=== PATIENT | female | born 1970 | race Caucasian/White ===

== ENCOUNTER → 2019-07-20 07:20 | Outpatient (CLI) | payer BC, SELFPAY ==
--- NOTE | ~2019-07-20 | MM_ITS ---
EXAMINATION: MM screening abby BI w leonel HISTORY: Screening mammogram TECHNIQUE: Craniocaudal and mediolateral oblique 3-D tomosynthesis images were obtained and synthetic 2-D images were generated. CAD analysis was submitted and interpreted. COMPARISON: 06/07/2018 bilateral digital screening mammogram BREAST PARENCHYMAL COMPOSITION: The breasts are extremely dense, which lowers the sensitivity of mamm ography. FINDINGS: There is no evidence of suspicious mass, calcification, or architectural distortion to sugg est malignancy in either breast. There has been no suspicious interval change. IMPRESSION: 1. No mammographic evidence of malignancy. 2. Recommend routine screening mammography in one year. BI-RADS Category 1: Negative Reviewed, dictated and finalized at location A. STONE ERECTOR
== END ==
DX: Z12.31 Encounter for screening mammogram for malignant neoplasm of breast (principal)
CPT/HCPCS: 77063; 77067

== ENCOUNTER 2019-12-17 15:33 | Outpatient (CLI) | payer BC, SELFPAY ==
[2019-12-17 15:47] LABS: Basophils Percent Auto 0.5 % (0.2-1.2); Eosinophils Absolute Auto 0.1 K/mm3 (0-0.3); Eosinophils Percent Auto 1.4 % (0-4.4); Hematocrit 38.4 % (37.0-47.0); Hemoglobin 12.8 g/dL (12.0-15.0); Immature Granulocyte Absolute 0.02 K/mm3 (0.00-0.031); Immature Granulocyte Percent A 0.3 % (0-0.5); Lymphocytes Absolute Auto 3.16 K/mm3 (0.9-3.2); Lymphocytes Percent Auto 39.7 % (18.3-44.2); Mean Corpuscular HGB Conc 33.3 g/dl (32-36); Mean Corpuscular Hemoglobin 31.6 pg (26-34); Mean Corpuscular Volume 94.8 fl (80-100); Monocytes Absolute Auto 0.7 K/mm3 (0.1-0.6); Monocytes Percent Auto 8.5 % (2.6-8.5); Neutrophils Percent Auto 49.6 % (45.5-73.1); Platelet Count Result 238 k/mm3 (150-375); Red Blood Count 4.05 M/mm3 (4.2-5.4); Red Cell Distribution Width 12.4 % (11.5-14.5)
[2019-12-17 17:22] LABS: Iron 76 ug/dL (37-170)
[2019-12-17 17:24] LABS: Blood Urea Nitrogen 15 mg/dL (7-17); Calcium 9.5 mg/dL (8.4-10.2); Carbon Dioxide 25 mmol/L (22-30); Chloride 103 mmol/L (98-107); Estimated Glomerular Filt Rate > 60; Glucose 104 mg/dL (65-105); Potassium 3.9 mmol/L (3.4-5.0); Sodium 136 mmol/L (137-145)
[2019-12-17 17:38] LABS: Percent Iron Saturation 22 % (20-50)
[2019-12-17 18:29] LABS: Folic Acid 16.6 ng/mL (2.76->20); Vitamin B12 > 1000.0 pg/mL (239-931)
== END 2019-12-17 15:34 | disposition home or self-care (01) ==
PROVIDERS: PCP Family Medicine; Visit Provider Internal Medicine Hematology & Oncology
DX: D64.9 Anemia, unspecified (principal)
CPT/HCPCS: 36415; 80048; 82607; 82728; 82746; 83540; 83550; 85025

== ENCOUNTER 2020-06-17 09:22 | Outpatient (CLI) | payer BC, SELFPAY ==
[2020-06-17 09:36] LABS: Basophils Percent Auto 0.6 % (0.2-1.2); Eosinophils Absolute Auto 0.1 K/mm3 (0-0.3); Eosinophils Percent Auto 1.5 % (0-4.4); Hematocrit 39.8 % (37.0-47.0); Hemoglobin 13.2 g/dL (12.0-15.0); Immature Granulocyte Absolute 0.02 K/mm3 (0.00-0.031); Immature Granulocyte Percent A 0.3 % (0-0.5); Lymphocytes Absolute Auto 2.12 K/mm3 (0.9-3.2); Lymphocytes Percent Auto 31.5 % (18.3-44.2); Mean Corpuscular HGB Conc 33.2 g/dl (32-36); Mean Corpuscular Hemoglobin 30.7 pg (26-34); Mean Corpuscular Volume 92.6 fl (80-100); Mean Platelet Volume 8.9 fl (7.4-10.4); Monocytes Absolute Auto 0.6 K/mm3 (0.1-0.6); Monocytes Percent Auto 8.9 % (2.6-8.5); Neutrophils Absolute Auto 3.9 K/mm3 (1.3-6.7); Neutrophils Percent Auto 57.2 % (45.5-73.1); Platelet Count Result 268 k/mm3 (150-375); Red Cell Distribution Width 13.5 % (11.5-14.5); White Blood Count 6.7 K/mm3 (4.5-10.0)
[2020-06-17 12:43] LABS: Iron 133 ug/dL (37-170)
[2020-06-17 12:53] LABS: Percent Iron Saturation 39 % (20-50)
[2020-06-17 14:16] LABS: Folic Acid > 20.0 ng/mL (2.76->20)
== END 2020-06-17 09:23 | disposition home or self-care (01) ==
LOC: ANHLAB 09:24
PROVIDERS: PCP Family Medicine; Visit Provider Internal Medicine Hematology & Oncology
DX: D64.9 Anemia, unspecified (principal)
CPT/HCPCS: 36415; 82607; 82728; 82746; 83540; 83550; 85025

== ENCOUNTER → 2020-12-05 10:34 | Outpatient (CLI) | payer BC, SELFPAY ==
--- NOTE | ~2020-12-05 | XR_ITS ---
EXAMINATION: XR lumbar spine min 4V DATE: 12/05/2020 11:04 INDICATION: Low back pain TECHNIQUE: Anteroposterior, lateral, and bilateral oblique views of the lumbar spine, and cone-down l ateral view of the lumbosacral junction were obtained. COMPARISON: None. FINDINGS: There are 2 mm of retrolisthesis of L5 on S1. The vertebral body heights are normal. There is no fracture. Small degenerative osteophytes project from the anterior endplates of multiple verteb ral bodies. There is mild facet osteoarthritis of the lower lumbar spine. IMPRESSION: 1. Mild lumbar spondylosis without acute findings. Reviewed, dictated and finalized at location B.
== END ==
PROVIDERS: PCP Family Medicine; Visit Provider Chiropractor
DX: M47.896 Other spondylosis, lumbar region (principal)
CPT/HCPCS: 72110

== ENCOUNTER 2021-07-15 07:57 | Outpatient (CLI) | payer BC, SELFPAY ==
--- NOTE | ~2021-07-15 | US_ITS ---
EXAMINATION: US abdomen complete EXAM DATE: 07/15/2021 08:25 INDICATION: R10.9 - Unspecified abdominal pain. TECHNIQUE: Multiple grayscale and Doppler images of the complete abdomen were obtained (by a technolo gist who performed the scan) and subsequently reviewed. There is no prior study for comparison. FINDINGS: The abdominal aorta is normal in caliber. Visualized portion IVC is patent. The pancreatic head a nd body are normal in appearance. The pancreatic tail is not visualized. The liver has normal echogenicity and contour. There are no focal liver lesions identified. There is no evidence of intrahepatic biliary duct dilation. Portal venous flow was seen in the hepatopedal , normal direction and has normal Doppler waveform. Common bile duct measures 5 mm, which is normal. The gallbladder wall is normal in thickness, with ex pected amount of distention. No sonographic evidence of pericholecystic fluid. There is no cholelit hiases. Technologist performing exam reports patient did not demonstrate sonographic Sanchez's sign. Please note that this sign is less reliable in patients who have received pain medication. Right kidney: There is normal contour and echogenicity. It measures 9.2 x 3.7 x 4.1 centimeters. T here are no focal renal lesions identified. There is no hydronephrosis. Left kidney: There is normal contour and echogenicity. It measures 9.8 x 5.0 x 4.7 centimeters. Th ere are no focal renal lesions identified. There is no hydronephrosis. The spleen measures 7 centimeters and is morphologically normal. IMPRESSION: 1. Unremarkable complete abdominal ultrasound exam. Reviewed, dictated and finalized at location B. 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
== END 2021-07-15 07:58 | disposition home or self-care (01) ==
LOC: ANHIMG 07:58
PROVIDERS: PCP Family Medicine; Visit Provider Physician Assistant
DX: R10.9 Unspecified abdominal pain (principal)
CPT/HCPCS: 76700

== ENCOUNTER 2021-12-04 08:44 | Outpatient (CLI) | payer BC, SELFPAY ==
--- NOTE | ~2021-12-04 | MM_ITS ---
EXAMINATION: MM screening abby BI w leonel HISTORY: Screening TECHNIQUE: Craniocaudal and mediolateral oblique 3-D tomosynthesis images were obtained and synthetic 2-D images were generated. CAD analysis was submitted and interpreted. COMPARISON: Comparison to multiple prior studies sequentially, with oldest reviewed study dated 07/2018. BREAST PARENCHYMAL COMPOSITION: The breasts are extremely dense, which lowers the sensitivity of mamm ography FINDINGS: There is no evidence of suspicious mass, calcification, or architectural distortion to sugg est malignancy in either breast. There has been no suspicious interval change. IMPRESSION: 1. No mammographic evidence of malignancy. 2. Recommend routine screening mammography in one year. BI-RADS Category 1: Negative Reviewed, dictated and finalized at location A.
== END 2021-12-04 08:45 | disposition home or self-care (01) ==
LOC: ANHIMG 08:45
PROVIDERS: PCP Family Medicine; Visit Provider Nurse Practitioner Obstetrics & Gynecology
DX: Z12.31 Encounter for screening mammogram for malignant neoplasm of breast (principal)
CPT/HCPCS: 77063; 77067

== ENCOUNTER 2022-06-02 01:28 | Day surgery (SDC) | payer BC, SELFPAY ==
--- NOTE | 2022-05-28 13:00 | PM.HPGS ---
History of Present Illness History of Present Illness Consent: Risks, benefits, and alternatives have been discussed and questions answered. Patient agrees to proceed with procedure. Chief complaint: Epigastric pain Narrative: Petty Pablo is a 52 year old female Who for the past year so has had episodes every few months of ? Abdominal pain.? Pain will last for several days.? She does not usually have vomiting with this she denies fever chills change in bowel habits.? She uses NSAIDs but rarely.? She actually has been maintained on omeprazole for quite a while.? she believes that she start taking omeprazole 4 years ago and cannot honestly remember which symptoms prompted it. She had tried Tums and also tried Carafate somewhere along the line which did not help.? There has been no weight loss. ? She states that she actually has 2 issues.? The 1 described above which has been occurring every now and then for the past year or 2 and then a new 1 that developed this past winter.? With this one, she had discomfort that was little higher in the abdomen, just to the left of the umbilicus.? It lasted about 3 weeks. ? It always felt somewhat better after she would eat.? With that she also noticed that she was having more reflux symptoms as she would feel some burning in her neck at times.? That also has subsided. She had several blood tests that were negative and an ultrasound that also was negative.? She was advised to add Pepcid to her regimen and after doing that she felt much better within a few days.? Review of Systems Review of Systems: All systems reviewed & are unremarkable except as noted in HPI and below PMFSH Surgical History Surgical History H/O removal of cyst Family History Family History Mother Family history of elevated blood lipids Father Acute myocardial infarction Family history of coronary artery disease Social History Social History Smoking status: Never smoker Second hand tobacco smoke exposure: No Alcohol intake: never Substance use: never Substance use type: does not use Living arrangements: with family Gender identity (if verbalized by the patient): Female Sexual Orientation (if Verbalized by the Patient): Straight or Heterosexual Spiritual care concerns: No Meds Home Medications and Allergies Home Medications Medication Instructions Recorded Confirmed Type aspirin 81 mg tablet,delayed 81 mg PO DAILY 06/18/19 06/01/22 History release (Aspir-Low) cetirizine 10 mg capsule (Zyrtec) 10 mg PO DAILY 05/14/20 06/01/22 History albuterol sulfate 90 mcg/actuation 1 puff inhalation Q4H PRN 09/01/20 06/02/22 Rx aerosol inhaler (ProAir HFA) shortness of breath or wheezing #8.5 grams famotidine 20 mg tablet 20 mg PO DAILY 09/01/21 06/01/22 History fluticasone propionate 115 See Rx Instructions .Route 03/22/22 06/01/22 Rx mcg-salmeterol 21 mcg/actuation .COMPLEX #12 grams HFA inhaler (Advair HFA) B6 1.7 mg-folic 400 mcg-B12 2.4 1 cap PO DAILY 06/01/22 06/01/22 History elb-tfsodx-fhfwjdqwbjtl oral capsule (Neuriva Plus FilterEasy) Lactobacillus rhamnosus GG 10 1 cap PO DAILY 06/01/22 06/01/22 History billion cell-inulin 200 mg capsule ([employer]) fluticasone propionate 50 1 spray intranasal BID 06/01/22 06/01/22 History mcg/actuation nasal spray,suspension montelukast 10 mg tablet 10 mg PO QPM 06/01/22 06/01/22 History (Singulair) Allergies Allergy/AdvReac Type Severity Reaction Status Date / Time erythromycin base Allergy Intermediate hives Verified 06/02/22 07:19 Exam Const: General: alert Orientation/consciousness: patient oriented x3 Resp: Auscultation: clear to auscultation bilaterally Cardio: Rhythm: regular rhythm GI: GI Palp: Yes Soft to
[2022-06-01 08:38] VITALS: BMI 23.3
[2022-06-02 07:29] VITALS: BP 140/70; PULSE 80; RESP 20; TEMP 36.4; O2SAT 100
[2022-06-02] MEDS: LACTATED RINGERS 1,000 ML 150 ML IV CONT (07:44)
--- NOTE | 2022-06-02 08:08 | WPDANESEPPF ---
Anes - Initial Pre Proc Eval Procedure: Operation Date: 06/02/22 08:30 Proposed Procedures p Esophagogastroduodenoscopy - Francesco Pearson MD Date/Time: 06/02/22 08:08 Surgeon: Francesco Pearson MD Pre Op Diagnosis: Epigastric pain Patient Data Age: 52 Gender: F Height: 1.57 m Weight: 58 kg Last Vital Signs Temp 97.5 F L 06/02/22 07:29 Pulse 80 06/02/22 07:29 Resp 20 06/02/22 07:29 BP 140/70 06/02/22 07:29 Pulse Ox 100 06/02/22 07:29 O2 Del Method Room Air 06/02/22 07:29 Allergies Allergy/AdvReac Type Severity Reaction Status Date / Time erythromycin base Allergy Intermediate hives Verified 06/02/22 07:19 Home Medications Medication Instructions Recorded Confirmed Type aspirin 81 mg tablet,delayed 81 mg PO DAILY 06/18/19 06/01/22 History release (Aspir-Low) cetirizine 10 mg capsule (Zyrtec) 10 mg PO DAILY 05/14/20 06/01/22 History albuterol sulfate 90 mcg/actuation 1 puff inhalation Q4H PRN 09/01/20 06/02/22 Rx aerosol inhaler (ProAir HFA) shortness of breath or wheezing #8.5 grams famotidine 20 mg tablet 20 mg PO DAILY 09/01/21 06/01/22 History fluticasone propionate 115 See Rx Instructions .Route 03/22/22 06/01/22 Rx mcg-salmeterol 21 mcg/actuation .COMPLEX #12 grams HFA inhaler (Advair HFA) B6 1.7 mg-folic 400 mcg-B12 2.4 1 cap PO DAILY 06/01/22 06/01/22 History nrs-xxmnhy-gnvfofpejnog oral capsule (Neuriva Plus Brain Performance) Lactobacillus rhamnosus GG 10 1 cap PO DAILY 06/01/22 06/01/22 History billion cell-inulin 200 mg capsule ([facility] [employer]) fluticasone propionate 50 1 spray intranasal BID 06/01/22 06/01/22 History mcg/actuation nasal spray,suspension montelukast 10 mg tablet 10 mg PO QPM 06/01/22 06/01/22 History (Singulair) Patient hx anesthesia problems: none Family hx anesthesia problems: none Results Review: All pre-operative results and documents have been reviewed as part of the pre-operative evaluation. [facility] Surgical History Surgical History H/O removal of cyst Family History Family History Mother Family history of elevated blood lipids Father Acute myocardial infarction Family history of coronary artery disease Social History Social History Smoking status: Never smoker Second hand tobacco smoke exposure: No Alcohol intake: never Substance use: never Substance use type: does not use Living arrangements: with family Gender identity (if verbalized by the patient): Female Sexual Orientation (if Verbalized by the Patient): Straight or Heterosexual Spiritual care concerns: No Anes - Eval Final PreProcedure Day of Procedure 06/02/22 08:08 Patient weight: normal Heart: regular rate and rhythm Lungs: clear to auscultation Airway: Mallampati scale class II Neurological: alert and oriented Last oral intake: >/= 8 hours ASA classification: II Emergent: no Anesthetic plan: proceed Anesthesia type and monitoring: general GIVS and standard monitoring Results Review: All pre-operative results and documents have been reviewed as part of the pre-operative evaluation. Informed Consent: The patient's anesthetic plan and its attendant risks and benefits were discussed with the patient/family/POA. Questions were solicited and answers provided to the satisfaction of the patient/family/POA.
[2022-06-02 08:27] VITALS: BP 107/65; PULSE 76; RESP 20; O2SAT 98
[2022-06-02 08:37] VITALS: BP 101/61; PULSE 86; RESP 20; O2SAT 99
[2022-06-02 08:47] VITALS: BP 114/71; PULSE 72; RESP 20; O2SAT 97
== END 2022-06-02 09:05 | disposition home or self-care (01) ==
PROVIDERS: PCP Family Medicine; Visit Provider Internal Medicine Gastroenterology
PROC: 0DJ08ZZ Inspection of Upper Intestinal Tract, Via Natural or Artificial Opening Endoscopic (ICD-10-PCS; CPT 43235; principal; 2022-06-02 08:30)
DX: K21.9 Gastro-esophageal reflux disease without esophagitis (principal); K29.70 Gastritis, unspecified, without bleeding; Z79.82 Long term (current) use of aspirin; Z79.51 Long term (current) use of inhaled steroids
CPT/HCPCS: 43239; 87081; 88305; J2704; J7120

== ENCOUNTER 2022-09-03 11:33 | Outpatient (CLI) | payer BC, SELFPAY ==
[2022-09-03 12:26] LABS: CRP < 0.5 mg/dL (<1.0)
[2022-09-10 22:38] LABS: Calprotectin, Stool 61 mcg/g
== END 2022-09-03 11:34 | disposition home or self-care (01) ==
PROVIDERS: PCP Family Medicine; Visit Provider Internal Medicine Gastroenterology
DX: R10.33 Periumbilical pain (principal)
CPT/HCPCS: 36415; 83993; 86140

== ENCOUNTER 2022-09-28 08:05 | Outpatient (CLI) | payer BC, SELFPAY ==
--- NOTE | ~2022-09-28 | XR_ITS ---
EXAMINATION: XR UGIAC w small bowel DATE: 09/28/2022 10:29 INDICATION: Periumbilical abdominal pain. TECHNIQUE: The patient drank thick barium, gas-producing crystals, and thin barium. Fluoroscopy of th e esophagus, stomach, and small bowel was performed. Fluoroscopy exposure time was 0.7 minutes. Radio graphs of the abdomen were obtained. The total number of images was 276. COMPARISON: CT abdomen and pelvis 12/20/2011 FINDINGS: UPPER GASTROINTESTINAL SERIES: There is no mass or stricture of the esophagus. Esophageal motility is normal. There is no hiatal her kari. There was no gastroesophageal reflux with provocative maneuvers. The stomach shows a normal fold ing pattern. SMALL BOWEL SERIES: The small bowel shows a normal folding pattern. Specifically, the terminal ileum is normal. Transit t dedrick to the colon was 1 hour. IMPRESSION: 1. Normal upper gastrointestinal series. 2. Normal small bowel series. Reviewed, dictated and finalized at location A.
== END 2022-09-28 08:06 | disposition home or self-care (01) ==
PROVIDERS: PCP Family Medicine; Visit Provider Internal Medicine Gastroenterology
DX: D50.9 Iron deficiency anemia, unspecified (principal); R10.33 Periumbilical pain
CPT/HCPCS: 74246; 74248

== ENCOUNTER 2023-05-19 16:10 | Outpatient (CLI) | payer BC, SELFPAY ==
--- NOTE | ~2023-05-19 | XR_ITS ---
EXAMINATION: XR knee RT 3V DATE: 05/19/2023 16:33 INDICATION: Right knee pain. TECHNIQUE: 3 views of right knee were obtained. COMPARISON: None. FINDINGS: Bone alignment is normal. No fracture. Joint spaces are normal. No knee joint effusion. IMPRESSION: 1. Normal right knee. Reviewed, dictated and finalized at location A. SOLUTION ARCHITECT IMPRESSION: 1. Normal right knee.
--- NOTE | ~2023-05-19 | XR_ITS ---
EXAMINATION: XR knee LT 3V DATE: 05/19/2023 16:33 INDICATION: Knee pain. TECHNIQUE: 3 views of left knee were obtained. COMPARISON: None. FINDINGS: Bone alignment is normal. No fracture. Joint spaces are normal. No knee joint effusion. IMPRESSION: 1. Normal left knee. Reviewed, dictated and finalized at location A. 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 Normal left knee.
--- NOTE | ~2023-05-19 | US_ITS ---
EXAMINATION: US venous doppler LE RT DATE: 05/19/2023 16:40 INDICATION: Right lower limb pain TECHNIQUE: Crystal scale images without and with compression and Doppler images of the right lower extre mity veins were obtained. COMPARISON: 09/09/2018 FINDINGS: The right common femoral vein, profunda femoral vein, femoral vein, popliteal vein, peronea l trunk, posterior tibial veins, and greater saphenous vein are patent. IMPRESSION: 1. Patent right lower extremity veins. No evidence of deep venous thrombosis. Reviewed, dictated and finalized at location L. GHT MANAGER
== END 2023-05-19 16:11 | disposition home or self-care (01) ==
PROVIDERS: PCP Family Medicine; Visit Provider Physician Assistant Medical
DX: M79.661 Pain in right lower leg (principal); Z86.718 Personal history of other venous thrombosis and embolism; M25.561 Pain in right knee; M25.562 Pain in left knee
CPT/HCPCS: 73562; 93971

== ENCOUNTER 2023-12-07 12:27 | Outpatient (CLI) | payer BC, SELFPAY ==
--- NOTE | ~2023-12-07 | MM_ITS ---
EXAMINATION: MM screening abby BI w leonel HISTORY: Screening mammogram TECHNIQUE: Craniocaudal and mediolateral oblique 3-D tomosynthesis images were obtained and synthetic 2-D images were generated. CAD analysis was submitted and interpreted. COMPARISON: 12/04/2021, 07/20/2019, 06/07/2018 BREAST PARENCHYMAL COMPOSITION:Dense: The breasts are extremely dense, which lowers the sensitivity o f mammography. FINDINGS: No suspicious mass, calcification, or architectural distortion are identified in either pranav ast to suggest malignancy. There has been no suspicious interval change. IMPRESSION: No mammographic evidence of malignancy. Recommend routine screening mammography in one year. BI-RADS Category 1: Negative Reviewed, dictated and finalized at location .
== END 2023-12-07 12:28 ==
PROVIDERS: PCP Nurse Practitioner Obstetrics & Gynecology; Visit Provider Nurse Practitioner Obstetrics & Gynecology
DX: Z12.31 Encounter for screening mammogram for malignant neoplasm of breast (principal)
CPT/HCPCS: 77063; 77067

== ENCOUNTER 2024-06-28 16:20 | Outpatient (CLI) | payer BC, SELFPAY ==
--- NOTE | ~2024-06-28 | US_ITS ---
EXAMINATION: US venous doppler LE RT DATE: 06/28/2024 16:39 INDICATION: Right lower limb pain. TECHNIQUE: Grayscale ultrasound images without and with compression and Doppler ultrasound images of the right lower extremity veins were obtained. COMPARISON: Ultrasound 05/19/2023 FINDINGS: The visualized portions of right common femoral vein, profunda (deep) femoral vein, femoral vein, pop liteal vein, peroneal veins, posterior tibial veins, and greater saphenous vein outflow are patent. IMPRESSION: 1. No deep venous thrombosis. Reviewed, dictated and finalized at location B. TUNNEL MECHANIC
--- OUTSIDE RECORDS SUMMARY | 2024-06-29 06:09 | XMS_ITS | Data Portability ---
Author Organization [facility] Address [address] [place] [place] [address] Care Team Providers Care Employee Relations Administrator Name Role Phone HERMINIO ZAVALA Primary Care Provider Assessment Encounter Date Assessment Date Assessment LastModified by Organization Details LastModified Time 10/12/2021 10/12/2021 Annual gynecological exam performed. Patient will come back in a year unless there are new symptoms. Not available 10/12/2021 11:48:57 07/15/2023 07/15/2023 Annual gynecological exam performed. Patient will come back in a year unless there are new symptoms. [email or web address] Not available 07/15/2023 12:51:02 Plan of Treatment Reminders Order Date Submit Date Provider Last Modified By Organization Details Last Modified Time Details Appointments None recorded. Lab hormone panel, serum or plasma 2021 022 [facility] (Lab), [address], [place], [address], 03:45:43 TSH, serum or plasma 2021 022 [facility] (Lab), [address], [place], [address], 03:45:43 test, urine 2021 022 [facility], [place], [address], 16:29:04 Referral None recorded. Procedures None recorded. Surgeries None recorded. Imaging US, pelvis 2021 022 [email or web address] [facility], [address], [address], [place], [address], 12:31:53 US, transvagina l 2021 022 [email or web address] [place], [address], [place], [address], 12:31:53 MAMMO, screening, bilateral 2023 024 [email or web address] [facility], [address], [place], [address], 4 15:24:39 Medication Orders None recorded. Patient TargetsNo targets recorded. Patient InstructionsNo instructions recorded. Reason for Referral None Reported. Results Created Date Observation Date Name Description Value Unit Range Abnormal Flag Note LastModifiedBy Organization Detail LastModifiedTime 10/13/19 22 10/12/2021 TSH, REFLE X FREE T4 TSH 1.74 uIU/m L 0.30-5 .33 Not Available [facility] (Lab) [address], [place], [address], 10/13/2021 03:45:43 10/13/19 22 10/12/2021 FSH, LH, ESTRA DIOL estradiol <5.0 pg/mL This assay was perfo rmed using [employer] ratio n reage nts and test kits. Value s obtai toribio with other assay metho ds or kits canno t be used inter contreras eably . Femal e Estra diol Range s: Folli cular phase 12.4- 233 pg/mL Ovula tion phase 41.0- 398 pg/mL Lutea l phase 22.3- 341 pg/mL Postm enopa usal< 5-138 pg/mL Healt hy Pregn ant Women 1st Trime ster1 54-32 43 pg/mL 2nd Trime ster1 561-2 1280 pg/mL 3rd Trime ster8 525-> 53745 pg/mL Not Available [facility] (Lab) [address], [place], [address], 10/13/2021 03:45:43 10/13/19 22 10/12/2021 FSH, LH, ESTRA DIOL FSH 115.0 mIU/m L This assay was perfo rmed using [employer] reage nts and test kits. Value s obtai toribio with other assay metho ds or kits canno t be used inter contreras eably . Femal es Folli cular : 3.5-1 2.5 mIU/m L Ovula tion: 4.7-2 1.5 mIU/m L Lutea l: 1.7-7 .7 mIU/m L Postm enopa use: 25.8- 134.8 mIU/m L Not Available [facility] (Lab) [address], [place], [address], 10/13/2021 03:45:43 10/13/19 22 10/12/2021 FSH, LH, ESTRA DIOL LH 44.7 mIU/m L This assay was perfo rmed using [employer] reage nts and test kits. Value s obtai toribio with other assay metho ds or kits canno t be used inter contreras easalem . Femal es Mid-F ollic ular: 2.4-1 2.6 mIU/m L Mid-C ycle: 14.0- 95.6 mIU/m L Mid-L uteal : 1.0-1 1.4 mIU/m L Postm enopa use: 7.7-5 8.5 mIU/m L Not Available [facility] (Lab) [address], [place], [address], 10/13/2021 03:45:43 10/13/19 22 10/12/2021 IMAGE GUIDE D PAP AND HPV REGAR DLESS image guided Pap, HPV regardless of Pap result SEE RESULT S BELOW CASE REPOR T: Cytol ogy Gynec ologi fili Repor t Case: [id number] Autho pratima sharp Provi ankit: Nichol souza , [employer] Calles cted: 10/12 1430 TOOL DISPATCHER Order ing Locat ion: [place] Patho nica Recehakan luis miguel: 10/13 0120 First Scree n: Ila Davila , CT Rescr een: Luisa kaiser, Linda ed, CT Speci men: Chepe rodriguezg Pap - Image d, Cervi x STATE MENT OF ADEQU ACY: Satis facto ry for evalu ation Trans forma tion zone compo nent canno t be defin itive ly ident ified due to the prese nce of atrop hy or other hormo nal contreras es FINAL DIAGN OSIS: Negat vasyl for Intra epith elial Lesio n or John kahn (NIL) . Atrop hic cell misael vazquez. Lucy zapien shira d by Luisa kaiser, Linda ed, CT on 2021 at 8:03 PM ----- ----- ----- ----- ----- ----- ----- ----- ----- ----- ----- ----- ----- ----- ----- ----- ----- ---- HPV RESUL TS: HPV mRNA E6/E7 : No HPV mRNA Detec argelia NOTE: This high risk HPV mRNA assay detec ts fourt een high- risk HPV types (16, 18, 31, 33, 35, 39, 45, 51, 52, 56, 58, 59, 66, 68) witho ut diffe renti ation . COMME NT: Note: This speci men was revie wed by a Cytot echno logis t and/o r Patho logis t (as indic ated in this repor t) after evalu ation using the Thinp rep Imagi ng Syste m. CLINI FILI INFOR MATIO N: Menst rual Statu s: LMP (if appli cable ): Clini fili Histo ry/Pr eviou s Pap: Type of Neopl tammie (if appli cable ): Signi fican t Clini fili Findi ngs: Other Histo ry: Hormo ryanne (if appli cable ): PAP EDUCA JOSUE L NOTE: The Pap Test is a scree veronika test with an inher ent false negat vasyl rate. Liqui d-bas ed sampl ing may decre ase, but will not elimi keith, false negat vasyl resul ts. A negat vasyl resul t does not precl ude the prese nce and/o r devel opmen t of disea se, since the prese nce of abnor mal cells in the sampl e depen ds on the locat ion of the lesio n and sampl ing techn ique. Paul nued regul ar scree veronika is the best metho d of cance r preve ntion . If repor argelia cytol ogic findi ng do not corre late with physi fili and/o r histo rical findi ngs, furth er inves tigat ion is recom obie d, as clini germán murphy nted. Not Available [facility] (Lab) [address], [place], [address], 10/17/2021 21:05:36 03/25/20 22 03/25/2022 SURGI FILI PATHO LOGY surgical pathology SEE RESULT S BELOW CASE REPOR T: Surgi fili Patho logy Repor t Case: [id number] Autho jeanethpranav lila Provi ankit: Sajan Sanders Colle cted: 03/25 1653 TOOL DISPATCHER Order ing Locat ion: [place] Patho logy Recei luis miguel: 03/26 0402 Patho logis t: Nadir Zepeda MD Speci men: Endom etriu m, EMB FINAL DIAGN OSIS: Endom etriu m, biops y: -Inac tive endom etriu m with malvin al break down. -No evide nce of hyper plasi a or malig criss . Elect carrie zapien shira d by Nadir Zepeda MD on 03/26 at 1:53 PM ----- ----- ----- ----- ----- ----- ----- ----- ----- ----- ----- ----- ----- ----- ----- ----- ----- ---- CLINI FILI INFOR YOLA N: N93.9 MICRO SCOPI C DESCR IPTIO N: A micro scopi c exami natio n was perfo rmed. GROSS DESCR IPTIO N: A. Rishabh brewer m. The speci men is label ed with the patie nt's name, demog raphi cs and EMB . Recei luis miguel in forma giuseppe is a 1.5 x 1.4 x 0.2 [address] of dark red tissu e. The entir e speci men is submi tted in one casse tte. Gross ed by Edith Segovia on Not Available [facility] [address] [place], [address], 03/26/2022 14:56:20 03/25/20 22 03/25/2022 pregn guille test, urine HCG negati ve Not Available [facility] [address], [place], [address], 03/25/2022 16:28:50 07/15/19 24 07/15/2023 IMAGE GUIDE D PAP AND HPV REGAR DLESS image guided Pap, HPV regardless of Pap result SEE RESULT S BELOW CASE REPOR T: Cytol ogy Gynec ologi fili Repor t Case: [id number] Autho pratima sharp Provi ankit: Sajan Sanders Colle cted: 07/15 1315 TOOL DISPATCHER Order ing Locat ion: [place] Patho logy Recei luis miguel: 07/16 0032 First Scree n: DeLuc a, Radha, CT Speci men: Scree veronika Pap - Image d, Cervi x STATE MENT OF ADEQU ACY: Satis facto ry for evalu ation Trans forma tion zone compo nent canno t be defin itive ly ident ified due to the prese nce of atrop hy or other hormo nal contreras es Parti ally obscu ring lubri cant prese nt. FINAL DIAGN OSIS: Negat vasyl for Intra epith elial Lesio jamshid or John kahn (NIL) . Atrop hic maricruz douglas rn. Elect carrie zapien shira d by Radha Poole, CT on 2023 at 12:44 PM ----- ----- ----- ----- ----- ----- ----- ----- ----- ----- ----- ----- ----- ----- ----- ----- ----- ---- HPV RESUL TS: HPV mRNA E6/E7 : No HPV mRNA Detec argelia NOTE: This high risk HPV mRNA assay detec ts fourt een high- risk HPV types (16, 18, 31, 33, 35, 39, 45, 51, 52, 56, 58, 59, 66, 68) witho ut diffe renti ation . COMME NT: This speci men was revie wed by a Cytot echno logis t and/o r Patho logis t (as indic ated in this repor t) after evalu ation using the Thinp rep Imagi ng Syste m. CLINI FILI INFOR MATIO N: Menst rual Statu s: LMP (if appli cable ): Clini fili Histo ry/Pr eviou s Pap: Type of Neopl tammie (if appli cable ): Signi fican t Clini fili Findi ngs: Other Histo ry: Hormo ryanne (if appli cable ): PAP EDUCA JOSUE L NOTE: The Pap Test is a scree veronika test with an inher ent false negat vasyl rate. Liqui d-bas ed sampl ing may decre ase, but will not elimi keith, false negat vasyl resul ts. A negat vasyl resul t does not precl ude the prese nce and/o r devel opmen t of disea se, since the prese nce of abnor mal cells in the sampl e depen ds on the locat ion of the lesio n and sampl ing techn ique. Paul nued regul ar scree veronika is the best metho d of cance r preve ntion . If repor argelia cytol ogic findi ng do not corre late with physi fili and/o r histo rical findi ngs, furth er inves tigat ion is recom obie d, as clini germán warra nted. Not Available [facility] (Lab) [address], [place], [address], 07/20/2023 13:47:11 03/23/20 22 03/23/2022 US, pelvi s No observ ation record ed. [address], [place], [address], 03/23/2022 10:17:42 03/23/20 22 03/23/2022 US, trans vagin al No observ ation record ed. [address], [place], [address], 03/23/2022 10:17:27 03/23/20 22 03/23/2022 US, pelvi s No observ ation record ed. JOSE M [address] [facility], [place], [address], 03/25/2022 17:00:24 12/07/19 24 12/07/2023 MAMMO , scree veronika, bilat eral No observ ation record ed. JOSE M [facility] [address], [place], [address], 12/27/2023 04:07:33 Result Notes None recorded. Procedures Surgical History Date Name Laterality Status Provider Name and Address Organization Details Recorded Time 03/25/20 Endometrial Biopsy completed Tabatha Morse [facility]- [address], [place], [address], [place] [facility] 03/25/2022 13:03:43 10/20/20 22 Endometrial Biopsy completed Sabiha Champion [facility] 07/15/2023 12:44:46 10/13/19 22 Date of Last Pap Smear completed Brooklyn Lomas [facility] 03/25/2022 10:10:47 03/07/20 17 uterine myomectomy completed Tabatha Morse [facility]- [address], [place], [address], [facility] 03/25/2022 10:41:59 Imaging Results Imaging Date Name Status LastModified by Organization Details LastModified Time 03/23/2022 US, pelvis completed [email or web address] [facility] [place] [address], [place], [address], 03/23/2022 10:17:42 03/23/2022 US, transvaginal completed carol [facility] [address], [place], [address], 03/23/2022 10:17:27 03/23/2022 US, pelvis completed JOSE M [address], [place], [address], 03/25/2022 17:00:24 12/07/2023 MAMMO, screening, bilateral active [facility] [address], [place], [address], 12/27/2023 04:07:33 Procedure Notes None recorded. Medical Equipment None Reported. Allergies Allergen ID Allergen Name Allergen Category Reaction Reaction Severity Criticality Documentation Date Start Date Code Code System Note Provider Name and Address Organization Details Recorded Time 90184 erythromy ori medicatio n Not available Not available Not available 10/12/2021 4053 RxNorm Brooklyn Lomas [facility], [facility] 11:50:22 Medications Name Sig Start Date Stop Date Status Note LastModified by Organization Details LastModified Time sucralfate 1 gram tablet TAKE 1 TABLET BY MOUTH EVERY 6 HOURS 10/12 completed Not Available Not Available Not Available prednisone 20 mg tablet TAKE 2 TABLETS BY MOUTH DAILY FOR 5 DAYS 07/15 completed Not Available Not Available Not Available omeprazole 40 mg capsule,del ayed release TAKE 1 CAPSULE BY MOUTH ONCE DAILY active Not Available Not Available No t Available triamcinolo ne acetonide 0.1 % topical ointment APPLY OINTMENT TOPICALLY TO AFFECTED AREA TWICE DAILY NEEDED DO NOT USE FOR LONGER THAN 1-2 WEEKS 07/15 completed Not Available Not Available Not Available hyoscyamine 0.125 mg sublingual tablet DISSOLVE 1 TABLET IN MOUTH THREE TIMES DAILY active Not Available Not Available No t Available montelukast 10 mg tablet TAKE 1 TABLET BY MOUTH IN THE EVENING active Not Available Not Available No t Available epinephrine 0.3 mg/0.3 mL injection, auto-inject or USE DIRECTED INTRAMUSC ULARLY ONCE NEEDED FOR ALLERGIC REACTION active Not Available Not Available No t Available methylpredn isolone 4 mg tablets in a dose pack TAKE BY MOUTH DIRECTED ON INSIDE OF PACKAGE 07/15 completed Not Available Not Available Not Available albuterol sulfate HFA 90 mcg/actuati on aerosol inhaler INHALE 1 PUFF BY MOUTH EVERY 4 HOURS NEEDED FOR SHORTNESS OF BREATH FOR WHEEZING active Not Available Not Available No t Available ipratropium bromide 42 mcg (0.06 %) nasal spray USE 2 SPRAYS IN EACH NOSTRIL FOUR TIMES DAILY active Not Available Not Available No t Available amoxicillin 875 mg-potassiu m clavulanate 125 mg tablet TAKE 1 TABLET BY MOUTH EVERY 12 HOURS 07/15 completed Not Available Not Available Not Available nitrofurant oin monohydrate /macrocryst als 100 mg capsule TAKE 1 CAPSULE BY MOUTH EVERY 12 HOURS FOR 5 DAYS MUST ADMINISTE R WITH FOOD/MEAL 07/15 completed Not Available Not Available Not Available fluticasone propionate 115 mcg-salmete rol 21 mcg/actuati on HFA inhaler INHALE 2 PUFFS BY MOUTH TWICE DAILY active Not Available Not Available No t Available olopatadine 0.6 % nasal spray USE 2 SPRAYS IN EACH NOSTRIL TWICE DAILY 07/15 completed Not Available Not Available Not Available Zyrtec 10 mg capsule Take by oral route. active Not Available Not Available No t Available Mucus Relief ER 600 mg tablet, extended release TAKE 1 TABLET BY MOUTH EVERY 12 HOURS NEEDED FOR CONGESTIO N 03/25 completed Not Available Not Available Not Available ID NOW COVID-19 Test Kit TEST DIRECTED TODAY 03/25 completed Not Available Not Available Not Available Vitals Date Recorded Body height Body mass index (BMI) Body weight Provider Name and Address Organization Details Last Updated DateTime 10/12/2021 154.94 cm 23.4 kg/m2 43477.45 g Brooklyn Lomas [facility] 10/12/2021 11:50:00 Date Recorded Systolic blood pressure Diastolic blood pressure Provider Name and Address Organization Details Last Updated DateTime 10/12/2021 122 mm[Hg] 80 mm[Hg] Tabatha Morse [facility] [address], [place], [address], [facility] 10/12/2021 12:20:11 Date Recorded Body height Provider Name an d Address Organization Details Last Updated DateTime 03/25/2022 154.94 cm Brooklyn Lomas [facility] 03/25/2022 10:09:12 Date Recorded Systolic blood pressure Diastolic blood pressure Provider Name and Address Organization Details Last Updated DateTime 03/25/2022 126 mm[Hg] 80 mm[Hg] Tabatha Morse [facility] [address], [place], [address], [facility] 03/25/2022 10:42:12 Date Recorded Body height Body mass index (BMI) Body weight Systolic blood pressure Diastolic blood pressure Provider Name and Address Organization Details Last Updated DateTime 07/15/2023 154.94 cm 24.2 kg/m2 41236.82 g 150 mm[Hg] 88 mm[Hg] Sabiha Champion [facility] 12:51:28 Social History Question Answer Notes LastModified by Organizat ion Details LastModified Time Tobacco Smoking Status Never Smoker Brooklyn fuller, [facility] 03/25/2022 10:10:03 Do You Have An Advance Directive? No Information n ot available 03/25/2022 What Is Your Level Of Alcohol Consumption? None Information not available 10/12/2021 Are You Blind Or Do You Have Difficulty Seeing? No Information n ot available 10/12/2021 What Is Your Level Of Caffeine Consumption? Moderate Information not available 10/12/2021 How Much Tobacco Do You Chew? None Information not available 03/25/2022 In The 14 Days Before Symptom Onset, Have You Had Close Contact With A Laboratory-confirm ed COVID-19 While That Case Was Ill? No Information n ot available 03/25/2022 In The 14 Days Before Symptom Onset, Have You Had Close Contact With A Person Who Is Under Investigation For COVID-19 While That Person Was Ill? No Information not available 03/25/2022 Have You Been To An Area Known To Be High Risk For COVID-19? No Information not available 03/25/2022 Are You Deaf Or Do You Have Serious Difficulty Hearing? No Information not available 10/12/2021 What Type Of Diet Are You Following? REGULAR Information n ot available 10/12/2021 What Is The Highest Grade Or Level Of School You Have Completed Or The Highest Degree You Have Received? [id number] Information not available 03/25/2022 Are There Any Guns Present In Your Home? Yes Information not available 03/25/2022 Do You Use Protection During Sex? No Information not available 03/25/2022 Do You Use Your Seat Belt Or Car Seat Routinely? Yes Information not available 10/12/2021 Are You Sexually Active? No Information not available 03/25/2022 Do You Have Smoke And Carbon Monoxide Detectors In Your Home? Yes Information not available 10/12/2021 How Much Tobacco Do You Smoke? No Information not available 03/25/2022 Do You Feel Stressed (tense, Restless, Nervous, Or Anxious, Or Unable To Sleep At Night)? [id number] Information not available 10/12/2021 Do You Use Any Illicit Or Recreational Drugs? No Information not available 10/12/2021 Do You Use Sunscreen Routinely? Yes Information not available 10/12/2021 Have You Used IV Drugs? No Information not available 03/25/2022 Sex: Unknown Functional Status Question Answer Note LastModified by Organizat ion Details LastModified Time Do you have difficulty walking or climbing stairs? No Information not available 03/25/2022 Are you able to walk? YESWOREST Information not available 10/12/2021 Are you able to care for yourself? Yes Information not available 03/25/2022 Do you have difficulty dressing or bathing? No Information not available 03/25/2022 What is your exercise level? Moderate Information not available 10/12/2021 Mental Status None recorded. Family History Relationship Description Onset Age of this Age Resolved Age Notes LastModified by Organization Details LastModified Time Father Heart disease Not available 2021 11:52:14 Mother Hypercholest erolemia Not available 2021 11:52:21 Medical History Condition Response Allergies (Food, seasonal, environmental ) Y Acid Reflux (GERD) Y Deep Vein Thrombosis Y Gynecological History Statement/Question Response Abnormal Pap N Date of Last Mammogram Date of LMP Y Was last menstrual period normal N STIs/STDs N HPV Vaccine N Current Control Method Menopause Are cycles usually normal N Date of Last Colonoscopy Sexually Active? N Menses Monthly N Date of Last Pap Smear 10/12/2021 Sexual Problems? N LMP Unknown Obstetrics History GPAL:G 1 P 0 0 0 1 Type Value Living 1 Total 1 Past Encounters Encounter ID Performer Location Encounter Start Date Encounter Closed Date Diagnosis/Indication Diagnosis SNOMED-CT Code Diagnosis ICD10 Code Diagnosis Note [id number] Tabatha Morse [facility] [address] [address] 10/12/2021 11:28:14 10/12/2021 12:45:58 Gynecologic examination 72520801 Z01.419 Take Calcium with Vitamin D 12-1500mg daily. Do monthly self breast exams. It is advised to get annual flu shot in the fall and she could obtain at [facility] or [facility] clinic. If you haven't received the Tdap vaccine in the last 10 years you should obtain one as well. Have mammogram yearly, bone density every 2-3 years and colonoscop y every 5-10 years depending on findings and history. Engage in daily exercise of low impact aerobic exercise 45-60 minutes 4-5 times weekly. Avoid tobacco and illicit drugs as well as using moderation with alcohol intake less than 1-2 8 oz beverages daily. This lifestyle behavior pattern will lead to less health conditions and longer life span. If BMI greater than 25 weight watchers or dietary consult advised. Questions have been answered. Patient appears to understand instructio ns, but if you have any further questions call or respond to this email Pap/hpv sent STD Screen declined Genetic Screen discussed Colon Screen UTD cologuard with PCP Dexa Screen na Routine Labs UTD PCP routine adult labsMammo ordered Irregular periods [id number] N92.6 Likely rigoberto to menopause changes in her menses but we agreed to update ovarian function today.Will have her PCP fax us her recent adult labs done this year as well. Keep menstrual diary [id number] [facility] [address],[place] [address] 03/23/2022 09:21:00 03/23/2022 10:20:09 Irregular periods 68448635 N92.6 D25.9 [id number] [facility] [address],[place] [address] 03/25/2022 09:57:02 03/25/2022 15:20:01 Uterine leiomyoma 66960689 D25.9 D25.0 N93.9 US results reviewedEM Bx completed (See procedure notes). Discussed possible options including MD consult for surgical options, IUD (risk of expulsion/ failure of placement possible), Progestero ne only options, GrnH antagonist s (orlissa), Not a candidate for estrogen so unable to consider Myfembree. We decided to let her consider these & will decide next steps once EMBx results return. Hx of DVTHx of Failed myomectomy Time spent in visit is a total of 26 mins with at least 50% of visit consisting of counseling and review of plan of care not including time spent on procedure. [id number] [facility] [address] [address] 07/15/2023 12:32:39 07/19/2023 08:59:02 Gynecologic examination 15957777 Z01.419 Z11.51 Take Calcium with Vitamin D 12-1500mg daily. Do monthly self breast exams. It is advised to get annual flu shot in the fall and she could obtain at [facility] or [facility] clinic. If you haven't received the Tdap vaccine in the last 10 years you should obtain one as well. Have mammogram yearly, bone density every 2-3 years and colonoscop y every 5-10 years depending on findings and history. Engage in daily exercise of low impact aerobic exercise 45-60 minutes 4-5 times weekly. Avoid tobacco and illicit drugs as well as using moderation with alcohol intake less than 1-2 8 oz beverages daily. This lifestyle behavior pattern will lead to less health conditions and longer life span. If BMI greater than 25 weight watchers or dietary consult advised. Questions have been answered. Patient appears to understand instructio ns, but if you have any further questions call or respond to this email Pap/hpv sentSTD Screen declinedGe netic Screen discussedC olon Screen UTD cologuard with PCPDexa Screen naRoutine Labs UTD PCP routine adult labsMammo ordered Screening mammography 24 [id number] Z12.31 Health Concerns Section Related Observation LastModified by Organization Detai ls LastModified Time None Recorded Concern Status LastModified by Organization Details LastModified Time None Recorded Advance Directives Directive N: Payers Encounter Date Sequence Insurance Name Policy Number Policy Christiansen Covered Member ID Christiansen Member ID Guarantor Name 10/12/2021 1 [employer]: 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 112 Petty Pablo [id number] Petty Pablo 03/23/2022 1 [employer]: 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 112 Petty Pablo [id number] Petty Pablo 03/25/2022 1 [employer]: 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 112 Petty Pablo [id number] Petty Pablo 07/15/2023 1 [employer]: 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 112 Petty Pablo [id number] Petty Pablo Notes Date Note Type Note Provider Name and Address Organization Details Recorded Time 10/12/2021 text/html Annual GYNReport ed bypatient.Menstrua l cycle:Perimenopaus al(Irregular cycle intervals likely transition into menopause but will require a little further assessment to ensure no other issues) Urinary symptoms:No hematuria; No incontinence Vulva:No genital lesion Vagina:Normal vaginal discharge Breast:No breast pain; No breast lump; No nipple discharge Current Contraception:Eagle gamous relationship; Not sexually active Sexual complaints:No sexual complaints; No pain during intercourse; Normal libido Menopausal Symptoms:No menopausal symptoms; Normal vaginal lubrication Psychological symptoms:No depression; No anxiety; No PMDD Preventive measures:Encourage self breast examination; Encourage regular exercise; Encourage no tobacco use; Encourage regular mammograms starting age 40; Followed with Q3 year pap smear and high risk HPV typing; Needs to schedule mammogram; Up to date on colonoscopy screening [facility] [address], [place], [address], [facility] 10/12/2021 12:25:13 03/25/2022 text/html Here today for U S review & EMBx. [place] fuller [facility] 03/25/2022 16:29:18 07/15/2023 text/html Annual Commercial Lines Underwriter Post-MenopausalRep orted bypatient.Menopaus al Symptoms:no menopausal symptoms; normal vaginal lubrication Vaginal Bleeding:history of menopause having occurred; no history of post menopausal bleeding Urinary Symptoms:no hematuria; no incontinence; no nocturia; no urinary frequency Vulva:no genital lesion; no vulvar atrophy Vagina:normal vaginal discharge; no vaginal atrophy Breast:no breast lump; no nipple discharge; no breast pain Sexual Complaints:no sexual complaints Psychological Symptoms:no depression; no anxiety Preventive Measures:encourage regular mammograms starting age 40; encourage self breast examination; encourage regular exercise; encourage no tobacco use; needs to schedule mammogram; history of recent colonoscopy [facility] [address], [place], [address], [facility] 07/18/2023 23:49:46 OBGyn Episode Ob Episode Information Episode Created Date Number of Fetuses Patient Bloodtype Patient rh Status Prepregnancy Weight lbs Domestic Partner Domestic Partner Phone Father Name Clinical Orthoptist Status 10/13/19 22 1 CLOSED Fetus Data First Name Last Name Admitted to NICU Weight (g) Sex Living Outcome Pediatric Complications Fetus ID Race Codes Race Delivery Type M Full Term [id number] Vaginal Delivery Roldan Calculation Initial Roldan Date Initial Exam Date Initial Exam Provider Initial Ultrasound Date Last Menstrual Period Date Ultra Sound Weeks Gestation 0 Eighteen To Twenty Week Roldan Update Ultra Sound Date Fundal Height At Umbil Quickening Date Ultra Sound Latest Weeks Gestation Final Roldan Confirmed By Final Roldan Confirmed Date Final Roldan Date Ultra Sound Latest Days Gestation 0 0 Menstrual History Last Menstrual Date Menses Monthly On Bcp Conception Prior Menses Frequency Hcg Plus Date Menarche Onset Age Delivery Information Delivery Date Delivery Type Labor Anesthesia Weeks Gestation Incision Type Labor Labor Length Hrs Delivered By Post Complications Tubal Sterilization Discharge Date Comments 6 Discharge Information Feeding Method Contraceptive Method Maternal HG B and HCT Levels
== END 2024-06-28 16:21 | disposition home or self-care (01) ==
PROVIDERS: PCP Family Medicine; Visit Provider Family Medicine
DX: M79.604 Pain in right leg (principal); M79.661 Pain in right lower leg; Z86.718 Personal history of other venous thrombosis and embolism
CPT/HCPCS: 93971

== ENCOUNTER 2024-12-28 08:52 | Outpatient (CLI) | payer BC, SELFPAY ==
--- OUTSIDE RECORDS SUMMARY | 2024-12-28 08:56 | XMS_ITS | Clinical Summary ---
Author Organization [facility] Address [address] [place] [address] Care Team Providers Care Night Filler Name Role Phone Armond Koehler MD Primary Care Provider Allergies Active Allergy Reactions Criticality Noted Date Comments Erythromycin Hives High 02/01/2019 Medications Advair HFA 115-21 mcg/actuation inhaler INL 2 PFS PO BID 0 Active montelukast (SINGULAIR) 10 mg tablet TK 1 T PO D 0 Active omeprazole (PriLOSEC) 40 mg capsule TK 1 C PO D 0 Active ferrous sulfate (IRON ORAL) Take by mouth Acti ve cetirizine HCl (ZYRTEC ORAL) Take by mouth Ac tive aspirin 81 mg enteric coated tablet Take 81 mg by mouth daily Active fluticasone propionate (FLONASE) 50 mcg/actuation nasal spray Administer 1 spray into each nostril daily Active Bepreve 1.5 % drops INSTILL 1 GTT IN OU BID 0 Active albuterol HFA (PROVENTIL HFA,VENTOLIN HFA,PROAIR HFA) 90 mcg/actuation inhaler INHALE 1 PUFF BY MOUTH EVERY 4 HOURS NEEDED FOR SHORTNESS OF BREATH OR WHEEZING 1 Active Active Problems Problem Noted Date Diagnosed Date Paresthesia 06/12/2020 Assessment & Plan (10/21/2020 9:33 AM CDT): Patient describes that her migratory paresthesias have spontaneously lessened. Her neurological examination remains normal at this time. Observation from the neurological standpoint would be appropriate. Assessment & Plan (06/12/2020 4:57 PM CHILD CARE LEAD TEACHER): Patient describes a several year history of migratory paresthesia. Prior MRI imaging of the brain demonstrates multiple T2 weighted changes suspicious for primary demyelination. MRI cervical spine is unrevealing with regards to the spinal cord signal. Given her continued symptoms an abnormality seen on MRI I think that is highly likely that she does have primary demyelination (multiple sclerosis). I will order a spinal fluid examination for further investigation into potential multiple sclerosis. I will see her back in the office upon completion of study. White matter abnormality on MRI of brain 021 Assessment & Plan (10/21/2020 9:35 AM CDT): Patient has undergone CSF examination with no evidence of primary demyelination, infectious or inflammatory abnormality at this time. The MRI findings may well represent chronic ischemic changes. Primary demyelination is felt to be clinically less likely in the setting of normal CSF examination. I have suggested that patient could have her PCP repeat the MRI brain with and without contrast in 1 year or sooner if symptoms increase in severity or location and if there is evidence of increase in T2 changes are abnormal contrast enhancement, then a follow-up CSF examination could be considered. Otherwise observation from the neurological standpoint would be most appropriate. I will see her back in the office on an as-needed basis from the medical neurological standpoint. Assessment & Plan (06/12/2020 4:57 PM CHILD CARE LEAD TEACHER): MRI brain with and without contrast reports multiple T2 weighted changes suspicious for primary demyelination. A CSF examination will be ordered for further investigation. Surgical History Surgery Date Site/Laterality Comments ORAL SURGERY FL FLUORO GUIDED LUMBAR PUNCTURE 06/20/2020 Right Medical History Medical History Date Comments No pertinent past medical history Family History Medical History Relation Name Comments No Known Problems Brother 1 No Known Problems Brother 2 Heart attack Father Dementia Mother Relation Name Status Comments Brother 1 Alive Brother 2 Alive Father Mother Social History Tobacco Use Types Packs/Day Years Used Date Smoking Tobacco: Never Smokeless Tobacco: Never Personal Safety Answer Date Recorded Getting School Help Needed Not on file 08/20 Comments Unknown Sex and Gender Information Value Date Recorded Sex Assigned at Not on file Legal Sex Female 6:22 PM CHILD CARE LEAD TEACHER Gender Identity Not on file Sexual Orientation Not on file Obstetrics History Last Filed Vital Signs Vital Sign Reading Time Taken Comments Blood Pressure 138/70 10/21/2020 8:41 AM CDT Pulse 70 10/21/2020 8:41 AM CDT Temperature 36.6 C (97.8 F) 10/21/2020 8:41 AM CDT Respiratory Rate - - Oxygen Saturation 99% 09/02/2020 8:18 AM CDT Inhaled Oxygen Concentration - - Weight 57.2 kg (126 lb) 10/21/2020 8:41 AM CDT Height 157.5 cm (5' 2) 10/21/2020 8:41 AM CDT Body Mass Index 23.05 10/21/2020 8:41 AM CDT Plan of Treatment Not on file Insurance [place] [facility] [place] Care Teams Night Filler Relationship Specialty Start Date End Date Armond Koehler MD [address] [facility] [address] [place], [place] [id number] PCP - General 03/28/20
--- OUTSIDE RECORDS SUMMARY | 2024-12-28 08:56 | XMS_ITS | Clinical Summary ---
Author Organization [facility] Address [address] [place] [address] Phone Care Team Providers Care Machine Loader Name Role Phone Armond Koehler MD Primary Care Provider [phone] Allergies Active Allergy Reactions Criticality Noted Date Comments Erythromycin Hives High 02/01/2019 Medications ADVAIR HFA 115-21 mcg/actuation HFA Aerosol Inhaler INHALE 2 PUFFS PO BID IN THE MORNING AND EVENING UTD 5 9 Active montelukast (SINGULAIR) 10 mg tablet TK 1 T PO QD IN THE LOGAN 5 9 Active omeprazole (PriLOSEC) 40 mg Capsule, Delayed Release(E.C.) TK 1 C PO QD AC 3 9 Active cyanocobalamin (VITAMIN B-12) 100 mcg tablet Take 1,000 mcg by mouth daily. Active aspirin (ECOTRIN EC) 81 mg Tablet, Delayed Release (E.C.) Take 81 mg by mouth daily. Active Bepotastine Besilate (Bepreve) 1.5 % Drops INSTILL 1 GTT IN OU BID 0 Active ferrous sulfate 324 mg (65 mg iron) Tablet, Delayed Release (E.C.) Take by mouth. Activ e cetirizine (ZyrTEC) 10 mg tablet 0 Active fluticasone propionate (FLONASE) 50 mcg/spray Bartelso, Suspension nasal inhaler Administer 1 Bartelso in each nostril. Active Active Problems Problem Noted Date Diagnosed Date Iron deficiency anemia 02/01/2019 Acute deep vein thrombosis ( DVT) of distal end of right lower extremity 02/01/2019 Family History Medical History Relation Name Comments Heart Attack Father Liver Cancer Maternal Grandfather No Known Problems Maternal Grandmother Dementia Mother High Cholesterol Mother No Known Problems Paternal Grandfather No Known Problems Paternal Grandmother Breast Cancer Neg Hx Relation Name Status Comments Father Maternal Grandfather Maternal Grandmother Mother Alive Paternal Grandfather Paternal Grandmother Social History Tobacco Use Types Packs/Day Years Used Date Smoking Tobacco: Never Smokeless Tobacco: Never Alcohol Use Standard Drinks/Week Comments Never 0 (1 standard drink = 0.6 oz pur e alcohol) Comments No Sex and Gender Information Value Date Recorded Sex Assigned at Not on file Legal Sex Female 5:26 AM SUPERVISOR ASBESTOS REMOVAL Gender Identity Not on file Sexual Orientation Not on file Occupation Industry Job Start Date Job End Date Not on file Not on file Not on file Not on file Last Filed Vital Signs Vital Sign Reading Time Taken Comments Blood Pressure 142/87 06/19/2020 3:30 PM SUPERVISOR ASBESTOS REMOVAL Pulse 100 06/19/2020 3:30 PM SUPERVISOR ASBESTOS REMOVAL Temperature 36.8 C (98.3 F) 06/19/2020 3:30 PM SUPERVISOR ASBESTOS REMOVAL Respiratory Rate - - Oxygen Saturation 98% 06/19/2020 3:30 PM SUPERVISOR ASBESTOS REMOVAL Inhaled Oxygen Concentration - - Weight 56.6 kg (124 lb 12.8 oz) 06/19/2020 3:30 PM SUPERVISOR ASBESTOS REMOVAL Height 155.6 cm (5' 1.25) 06/19/2020 3:30 PM CS T Body Mass Index 23.39 06/19/2020 3:30 PM SUPERVISOR ASBESTOS REMOVAL Plan of Treatment Health Maintenance Due Date Last Done Comments DTAP/TDAP/TD VACCINES (1 - Tdap) 1989 HEPATITIS B VACCINES (1 of 3 - 19+ 3-dose series) 1989 COLORECTAL SCREENING 2015 Colorectal Cancer Screening 2015 FIT-DNA Q 3 years 2015 FIT/FOBT Q 1 year 2015 Flex Sig/CT Colonography Q 5 years 2015 ZOSTER VACCINE (1 of 2) 2020 BREAST CANCER SCREENING 07/20/2020 07/20/19 20, 07/13/2016, 02/06/2015, Additional history exists PAP SMEAR 12/23/2022 12/24/2019, 07/21/2010 CERVICAL CANCER SCREENING 12/23/2024 HPV/Cotest (21-29) 12/23/2024 12/24/2019, 07/21/2010 HPV/Cotest (30-65) 12/23/2024 12/24/2019, 07/21/2010 INFLUENZA VACCINE (#1) 2025 Procedures Procedure Name Priority Date/Time Associated Diagnosis Comments CERV/VAG CYTO AGE BASED SCREEN PAP Routine 12/24/2019 1:47 PM CDT Well female exam with routine gynecological exam MAMMO SCREEN BILAT W OR WO CAD Routine 07/20/2019 from Last 3 Months or Most Recently Relevant to Health Maintenance Results * (ABNORMAL) CERV/VAG CYTO AGE BASED SCREEN PAP (12/24/2019 1:47 PM CDT) COMMENT (PAP): SEE COMMENT 0 8:14 AM CDT [facility] Comment: This order for age-based cervical cancer and STI screening follows ACOG guidelines(PB 168, 140, PHG112). See individual assays for performing site location. CLINICAL INFORMATION Information not provided 12/31/2019 8:14 AM CDT [facility] LAST MENSTRUAL PERIOD Information not provided 12/31/2019 8:14 AM CDT [facility] PREV PAP: Information not provided 12/31/2019 8:14 AM CDT [facility] PREV BX: Information not provided 12/31/2019 8:14 AM CDT [facility] SOURCE Endocervix 12/31/2019 8:14 AM CDT [facility] ADEQUACY: SEE COMMENT 12/31/2019 8:14 AM CDT [facility] Comment: Satisfactory for evaluation. Endocervical/transformation zone component present. Age and/or menstrual status not provided GENERAL CATEGORIZATION: EPITHELIAL CELL ABNORMALITY(A) 12/31/2019 8:14 AM CDT [facility] PAP INTERP Atypical Squamous Cells of Undetermined Significance (ASC-US)(A) 12/31/2019 8:14 AM CDT [facility] COMMENT SEE COMMENT 12/31/2019 8:14 AM CDT [facility] Comment: This Pap test has been evaluated with computer assisted technology. Suggest clinical correlation and follow-up as clinically appropriate RACK PULLER: SEE COMMENT 2019 8:14 AM CDT [facility] Comment: MEF, CT(ASCP) CT screening location: [place] [address] [address] [place] [address] PATHOLOGIST SEE COMMENT 12/31/2019 8:14 AM CDT [facility] Comment: Natan Ortiz M.D., Board Certified in Anatomic Pathology and Cytopathology. (electronic signature) EXPLANATORY NOTE SEE COMMENT 020 8:14 AM CDT [facility] Comment: EXPLANATORY NOTE: The Pap is a screening test for cervical cancer. It is not a diagnostic test and is subject to false negative and false positive results. It is most reliable when a satisfactory sample, regularly obtained, is submitted with relevant clinical findings and history, and when the Pap result is evaluated along with historic and current clinical information. HPV E6/E7 Not Detected Not Detected 12/31/2019 8:14 AM CDT [facility] Comment: This test was performed using the APTIMA HPV Assay ([employer] This assay detects E6/E7 viral messenger RNA (mRNA) from 14 high-risk HPV types (16,18,31,33,35,39,45,51,52,56,58,59,66,68). The analytical performance characteristics of this assay have been determined by [facility]. The modifications have not been cleared or approved by the FDA. This assay has been validated pursuant to the CLIA regulations and is used for clinical purposes. Genital SWAB OF ENDOCERVIX / Unknown Collection / Unknown 12/24/2019 1:47 PM CDT 12/24/2019 7:11 PM CDT Narrative [facility] - 12/31/2019 8:14 AM CDT Performing Organization Information: Site ID: [place] [facility] Address: [address] [place] [address] Director: Luis Carlos Clark D.O., MPH Site ID: [place] [facility] Address: [address] [address] Director: Lisa Stephen us Shanae Villeda MD PATHOLOGY/CYTOLOGY ORDERAB LES Final Result [facility] [phone] * MAMMO SCREEN BILAT W OR WO CAD (07/20/2019) Anatomical Region Laterality Modality Breast Bilateral Mammography us Shanae Villeda MD MAMMO ORDERABLES Edited Re sult - Final from Last 3 Months or Most Recently Relevant to Health Maintenance Insurance [facility] FEDERAL Care Teams Machine Loader Relationship Specialty Start Date End Date Armond Koehler MD PCP - General Family Practice 08/18/11
--- OUTSIDE RECORDS SUMMARY | 2024-12-28 08:56 | XMS_ITS | Encounter Summary ---
Author Organization [facility] Address [address] [place] [address] Care Team Providers Care Housing Quality Standard Inspector Name Role Phone Armond Koehler MD Primary Care Provider [phone] Encounter Details Date Type Department Care Team (Latest Contact Info) Description 09/01/2005 Outpatient Historical [facility] Alverto Gaming MD NO ADDRESS ON FILE Elderly Multigravida with Antepartum Condition or Complication (Primary Dx) Social History Tobacco Use Types Packs/Day Years Used Date Smoking Tobacco: Never Assessed Comments Unknown Sex and Gender Information Value Date Recorded Sex Assigned at Not on file Legal Sex Female 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
--- OUTSIDE RECORDS SUMMARY | 2024-12-28 08:56 | XMS_ITS | Encounter Summary ---
Author Organization [facility] Address [address] [place] [address] Care Team Providers Care Caretaker Resort Name Role Phone Armond Koehler MD Primary Care Provider Encounter Details Date Type Department Care Team (Late st Contact Info) Description 10/06/2005 Outpatient Historical [facility] Maternal and Ground Floor S [facility] [address] [place] [address] Luis Carlos Robertson MD NO ADDRESS ON FILE Social History Tobacco Use Types Packs/Day Years Used Date Smoking Tobacco: Never Assessed Comments Unknown Sex and Gender Information Value Date Recorded Sex Assigned at Not on file Legal Sex Female 5:26 AM BIOINFORMATICIST Gender Identity Not on file Sexual Orientation Not on file documented as of this encounter Plan of Treatment Not on file documented as of this encounter Visit Diagnoses Not on filedocumented in this encounter Care Teams Caretaker Resort Relationship Specialty Start Date End Date Armond Koehler MD PCP - General Family Practice 08/18/11 documented as of this encounter
--- OUTSIDE RECORDS SUMMARY | 2024-12-28 08:56 | XMS_ITS | Encounter Summary ---
Author Organization [facility] Address [address] [place] [address] Care Team Providers Care Conservation Science Officer Name Role Phone Armond Koehler MD Primary Care Provider [phone] Encounter Details Date Type Department Care Team (Latest Contact Info) Description 02/27/2006 Inpatient Historical [facility] Obinna Shaikh MD [address] [place] [address] Alverto Gaming MD NO ADDRESS ON FILE Cord Around Neck-Deliver (Primary Dx) Social History Tobacco Use Types Packs/Day Years Used Date Smoking Tobacco: Never Assessed Comments Unknown Sex and Gender Information Value Date Recorded Sex Assigned at Not on file Legal Sex Female 5:26 AM STAKE DRIVER Gender Identity Not on file Sexual Orientation Not on file documented as of this encounter Plan of Treatment Not on file documented as of this encounter Visit Diagnoses Diagnosis Cord around neck, with compression, complicating labor and delivery, delivered- Primary documented in this encounter Care Teams Conservation Science Officer Relationship Specialty Start Date End Date Armond Koehler MD PCP - General Family Practice 08/18/11 documented as of this encounter
--- OUTSIDE RECORDS SUMMARY | 2024-12-28 08:56 | XMS_ITS | Referral Summary ---
Author Organization [facility] Address [address] [place] [address] Care Team Providers Care Senior Network Administrator Name Role Phone Armond Koehler MD Primary [...] appropriate. Assessment & Plan (06/12/2020 4:57 PM MASTER IN CHANCERY): Patient describes a several year history of [...] standpoint. Assessment & Plan (06/12/2020 4:57 PM MASTER IN CHANCERY): MRI brain with and without contrast reports multiple T2 weighted changes suspicious for primary demyelination. A CSF examination will be ordered for further investigation. Social History Tobacco Use Types Packs/Day Years Used Date Smoking Tobacco: Never Smokeless Tobacco: Never Personal Safety Answer Date Recorded Getting School Help Needed Not on file 08/20 Comments Unknown Sex and Gender Information Value Date Recorded Sex Assigned at Not on file Legal Sex Female 6:22 PM MASTER IN CHANCERY Gender Identity Not on file Sexual Orientation Not on file Last Filed Vital Signs [...] Plan of Treatment Not on file Insurance [employer] [place] [employer] [place] Care Teams Senior Network Administrator Relationship Specialty Start Date End Date Armond Koehler MD [address] [facility] [address] [place] [address] PCP - General 03/28/20
--- OUTSIDE RECORDS SUMMARY | 2024-12-28 08:56 | XMS_ITS | Encounter Summary ---
Author Organization [facility] Address [address] [place] [address] Care Team Providers Care Dairy Farm Operator Name Role Phone Armond Koehler MD Primary Care Provider [phone] Encounter Details Date Type Department Care Team (Late st Contact Info) Description 09/01/2005 Outpatient Historical [facility] Maternal and Ground Floor [address] [facility] [address] [place] [phone] Brandon Salazar MD [address] [place] [address] Social History Tobacco Use Types Packs/Day Years Used Date Smoking Tobacco: Never Assessed Comments Unknown Sex and Gender Information Value Date Recorded Sex Assigned at Not on file Legal Sex Female 5:26 AM WELDING MACHINE OPERATOR HELPER ARC Gender Identity Not on file Sexual Orientation Not on file documented as of this encounter Plan of Treatment Not on file documented as of this encounter Visit Diagnoses Not on filedocumented in this encounter Care Teams Dairy Farm Operator Relationship Specialty Start Date End Date Armond Koehler MD PCP - General Family Practice 08/18/11 documented as of this encounter
--- OUTSIDE RECORDS SUMMARY | 2024-12-28 08:56 | XMS_ITS | Encounter Summary ---
Author Organization [facility] Address [address] [place] [address] Care Team Providers Care Open Hearth Furnace Operator Helper Name Role Phone Armond Koehler MD Primary Care Provider [phone] Encounter Details Date Type Department Care Team (Latest Contact Info) Description 10/06/2005 Outpatient Historical [facility] Alverto Gaming MD NO ADDRESS ON FILE Elderly Primigravida, Antepartum (Primary Dx) Social History Tobacco Use Types Packs/Day Years Used Date Smoking Tobacco: Never Assessed Comments Unknown Sex and Gender Information Value Date Recorded Sex Assigned at Not on file Legal Sex Female 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
--- OUTSIDE RECORDS SUMMARY | 2024-12-28 08:56 | XMS_ITS | Patient Health Record ---
Author Organization [facility] [employer] [place] ([address]) Address [address] [place] [address] Care Team Providers Care Shoder Filler Name Role Phone Armond Koehler MD Primary Care Provider Unavaila Jr Perez Unavailable [phone] Julio Man Unavailable [phone] Allergies Allergen (clinical drug ingredient) Drug/Non Drug Allergy documented on EMR Reaction Allergy Type Onset Date Status erythromycin Erythromycin hives Drug Allergy A ctive Reason For Referral No Information Medications Medication SIG (Take, Route, Frequency, Duration) Notes Start Date End Date Status NASAL WASHES N/A as directed intranasally as needed; Duration: 30 Active Azelastine HCl 137 MCG/SPRAY 2 spray(s) intranasally 2 times a day as needed; Duration: 30 day(s) Active ADVAIR HFA CFC free 115 mcg-21 mcg/inh 2 puff(s) inhaled 2 times a day Active Cetirizine HCl 10 MG 1 tab(s) orally once a day Active Singulair 10 MG 1 tab(s) orally once a day Active Ipratropium [place] 0.06 % 2 spray(s) intranasally 4 times a day; Duration: 30 days Not-Taking Flonase Allergy Relief 50 MCG/ACT 2 spray(s) intranasally bid; Duration: 30 day(s) Active EpiPen 2-Placido 0.3 mg as directed intramuscularly once; Duration: 30 days Active Famotidine 40 mg 1 tab(s) orally 30 mins prior to SCIT; Duration: 30 days 11/29/2022 Active EPIPEN 2-PLACIDO 0.3 mg as directed intramuscularly once; Duration: 30 days Active FAMOTIDINE 40 mg 1 tab(s) orally 30 mins prior to SCIT; Duration: 30 days 11/29/2022 Active ALBUTEROL (EQV-PROAIR HFA) 90 mcg/inh 2 puff(s) inhaled every 6 hours Active AZELASTINE HYDROCHLORIDE NASAL 137 mcg/inh 2 spray(s) intranasally 2 times a day as needed; Duration: 30 day(s) Active OLOPATADINE NASAL 665 MCG/INH 2 SPRAY(S) INTRANASALLY 2 TIMES A DAY; Duration: 30 DAY(S) *Please review for potential replacement for e-prescription and drug interaction check* Active OLOPATADINE NASAL 665 MCG/INH 2 SPRAY(S) INTRANASALLY 2 TIMES A DAY; Duration: 30 DAY(S) *Please review for potential replacement for e-prescription and drug interaction check* Active Advair HFA 115-21 MCG/ACT 2 puff(s) inhaled 2 times a day Active OLOPATADINE NASAL 665 MCG/INH 2 SPRAY(S) INTRANASALLY 2 TIMES A DAY; Duration: 30 DAY(S) *Please review for potential replacement for e-prescription and drug interaction check* Active EPIPEN 2-PLACIDO 0.3 mg as directed intramuscularly once; Duration: 30 days Active FAMOTIDINE 40 mg 1 tab(s) orally 30 mins prior to SCIT; Duration: 30 days 11/29/2022 Active SINGULAIR 10 mg 1 tab(s) orally once a day Active FLONASE 50 mcg/inh 1 spray(s) intranasally bid Active SIT (TRADITIONAL) variable per schedule per schedule; Duration: 999 days Active CETIRIZINE HYDROCHLORIDE 10 mg 1 tab(s) orally once a day Active OLOPATADINE NASAL 665 MCG/INH 2 SPRAY(S) INTRANASALLY 2 TIMES A DAY; Duration: 30 DAY(S) *Please review for potential replacement for e-prescription and drug interaction check* Active IPRATROPIUM NASAL 42 mcg/inh 2 spray(s) intranasally 4 times a day; Duration: 30 days Active Immunizations Vaccine Route Administration Date Status Comme nts NOC Flucelevax Quadrivalent IM Intramuscular 03/13/2020 Administered Social History Tobacco Use: Social History Observation Description Date Details (start date - stop date) Never Smoker NA - NA Smoking Smart Form: Question Answer Notes Are you a: never smoker Tobacco Control (Standard) Question Answer Notes Tobacco use: Nonsmoker Problems Problem Type SNOMED Code ICD Code Onset Dates Problem Status W/U Status Risk Notes Problem Chronic allergic conjunctivitis (87309917) Other chronic allergic conjunctivitis (H10.45) Active confirmed Problem Allergic rhinitis caused by pollen (disorder) (87508473) Allergic rhinitis due to pollen (J30.1) Active confirmed Problem Allergic rhinitis caused by animal hair and dander (201473598342626) Allergic rhinitis due to animal (cat) (dog) hair and dander (J30.81) Active confirmed Problem Allergic rhinitis (48465325) Other allergic rhinitis (J30.89) Active confirmed Problem Allergic rhinitis caused by pollen (disorder) (36839156) Allergic rhinitis due to pollen (J30.1) Active confirmed Problem Allergic rhinitis caused by animal hair and dander (521613090724395) Allergic rhinitis due to animal (cat) (dog) hair and dander (J30.81) Active confirmed Problem Allergic rhinitis (24732113) Other allergic rhinitis (J30.89) Active confirmed Problem Chronic allergic conjunctivitis (32065142) Other chronic allergic conjunctivitis (H10.45) Active confirmed Problem Chronic cough (99449232) Chronic cough (R05.3) Active confirmed Vital Signs Blood pressure diastolic 80 mm Hg 02/13/2024 Oximetry 99 % 02/13/2024 Height 62 in 02/13/2024 Blood pressure systolic 155 mm Hg 02/13/2024 Weight 131.8 lbs 02/13/2024 BMI 24.1 kg/m2 02/13/2024 Encounters Encounter Location Date Provider Diagnosis [facility] [address] [phone] 01/16/2024 Julio Man Allergic rhinitis du e to pollen J30.1 ; Other allergic rhinitis J30.89 ; Allergic rhinitis due to animal (cat) (dog) hair and dander J30.81 and Other chronic allergic conjunctivitis H10.45 [facility] [address] [address] 02/13/2024 Jr Bynum Allergic rhinitis du e to pollen J30.1 ; Other allergic rhinitis J30.89 ; Other chronic allergic conjunctivitis H10.45 ; Chronic cough R05.3 ; Dyspnea, unspecified R06.00 and Elevated blood-pressure reading, without diagnosis of hypertension R03.0 [facility] [address] [place] [phone] 02/20/2024 Julio Man Allergic rhinitis du e to pollen J30.1 ; Other allergic rhinitis J30.89 ; Allergic rhinitis due to animal (cat) (dog) hair and dander J30.81 and Other chronic allergic conjunctivitis H10.45 [facility] [address] [place] [phone] 02/27/2024 Julio Man Allergic rhinitis du e to pollen J30.1 ; Other allergic rhinitis J30.89 ; Allergic rhinitis due to animal (cat) (dog) hair and dander J30.81 and Other chronic allergic conjunctivitis H10.45 [facility] [address] [place] [phone] 03/26/2024 Julio Donovan Allergic rhinitis du e to pollen J30.1 ; Other allergic rhinitis J30.89 ; Allergic rhinitis due to animal (cat) (dog) hair and dander J30.81 and Other chronic allergic conjunctivitis H10.45 [facility] [address] [place] [phone] 04/23/2024 Julio Donovan Allergic rhinitis du e to pollen J30.1 ; Other allergic rhinitis J30.89 ; Allergic rhinitis due to animal (cat) (dog) hair and dander J30.81 and Other chronic allergic conjunctivitis H10.45 [facility] [address] [place] [phone] 05/28/2024 Julio Donovan Allergic rhinitis du e to pollen J30.1 ; Other allergic rhinitis J30.89 ; Allergic rhinitis due to animal (cat) (dog) hair and dander J30.81 and Other chronic allergic conjunctivitis H10.45 [facility] [address] [place] [phone] 06/27/2024 Juliotania Man Allergic rhinitis du e to pollen J30.1 ; Other allergic rhinitis J30.89 ; Allergic rhinitis due to animal (cat) (dog) hair and dander J30.81 and Other chronic allergic conjunctivitis H10.45 [facility] [address] [place] [phone] 07/24/2024 Julio Man Allergic rhinitis du e to pollen J30.1 ; Other allergic rhinitis J30.89 ; Allergic rhinitis due to animal (cat) (dog) hair and dander J30.81 and Other chronic allergic conjunctivitis H10.45 [facility] [address] [place] [phone] 08/20/2024 Julio Man Allergic rhinitis du e to pollen J30.1 ; Other allergic rhinitis J30.89 ; Allergic rhinitis due to animal (cat) (dog) hair and dander J30.81 and Other chronic allergic conjunctivitis H10.45 [facility] [address] [place] [phone] 09/17/2024 Julio Man Allergic rhinitis du e to pollen J30.1 ; Other allergic rhinitis J30.89 ; Allergic rhinitis due to animal (cat) (dog) hair and dander J30.81 and Other chronic allergic conjunctivitis H10.45 [facility] [address] [place] [phone] 10/16/2024 Julio Man Allergic rhinitis du e to pollen J30.1 ; Other allergic rhinitis J30.89 ; Allergic rhinitis due to animal (cat) (dog) hair and dander J30.81 and Other chronic allergic conjunctivitis H10.[address] [phone] 11/12/2024 Julio Man Allergic rhinitis du e to pollen J30.1 ; Other allergic rhinitis J30.89 ; Allergic rhinitis due to animal (cat) (dog) hair and dander J30.81 and Other chronic allergic conjunctivitis H10.45 [facility] [address] [place] [phone] 12/10/2024 Julio Man Allergic rhinitis du e to pollen J30.1 ; Other allergic rhinitis J30.89 ; Allergic rhinitis due to animal (cat) (dog) hair and dander J30.81 and Other chronic allergic conjunctivitis H10.[address] [phone] 01/16/2024 Jr Bynum Allergic rhinitis du e to pollen J30.1 [facility] [address] [facility] [address] [place] [address] 01/23/2024 Jr Bynum Allergic rhinitis du e to pollen J30.1 Assessments Encounter Date Diagnosis (ICD Code) Assessment Notes Treatment Notes Treatment Clinical Notes Section Notes 01/16/2024 Other allergic rhinitis (ICD-10 - J30.89) 01/16/2024 Allergic rhinitis due to pollen (ICD-10 - J30.1) 01/23/2024 Allergic rhinitis due to pollen (ICD-10 - J30.1) 02/13/2024 Allergic rhinitis due to pollen (ICD-10 - J30.1) Petty clearly suffers from atopic disease based upon our skin testing today. Accordingly, we have introduced a new, aggressive medication regimen, discussed nasal washes and allergy-specifi c avoidance measures. Has seen ENT for continued congestion. Everything was normal. Continued daily Flonase and now holding nasal ipratropium. Procedure tolerated today without issue. Keep AIE on hand 2 hours after SCIT and continue to premedicate with Zyrtec. Increase SCIT in peak seasons PRN. Return per schedule for SCIT and 6 months for E&M 02/13/2024 Other allergic rhinitis (ICD-10 - J30.89) Follow allergen avoidance, meds and continue SCIT as an adjunctive treatment to current regimen 01/16/2024 Allergic rhinitis due to pollen (ICD-10 - J30.1) 02/20/2024 Allergic rhinitis due to pollen (ICD-10 - J30.1) 02/20/2024 Other allergic rhinitis (ICD-10 - J30.89) 02/27/2024 Allergic rhinitis due to pollen (ICD-10 - J30.1) 02/27/2024 Other allergic rhinitis (ICD-10 - J30.89) 03/26/2024 Allergic rhinitis due to pollen (ICD-10 - J30.1) 03/26/2024 Other allergic rhinitis (ICD-10 - J30.89) 04/23/2024 Allergic rhinitis due to pollen (ICD-10 - J30.1) 04/23/2024 Other allergic rhinitis (ICD-10 - J30.89) 05/28/2024 Allergic rhinitis due to pollen (ICD-10 - J30.1) 05/28/2024 Other allergic rhinitis (ICD-10 - J30.89) 06/27/2024 Allergic rhinitis due to pollen (ICD-10 - J30.1) 06/27/2024 Other allergic rhinitis (ICD-10 - J30.89) 07/24/2024 Allergic rhinitis due to pollen (ICD-10 - J30.1) 07/24/2024 Other allergic rhinitis (ICD-10 - J30.89) 08/20/2024 Allergic rhinitis due to pollen (ICD-10 - J30.1) 08/20/2024 Other allergic rhinitis (ICD-10 - J30.89) 09/17/2024 Allergic rhinitis due to pollen (ICD-10 - J30.1) 09/17/2024 Other allergic rhinitis (ICD-10 - J30.89) 10/16/2024 Allergic rhinitis due to pollen (ICD-10 - J30.1) 10/16/2024 Other allergic rhinitis (ICD-10 - J30.89) 11/12/2024 Allergic rhinitis due to pollen (ICD-10 - J30.1) 11/12/2024 Other allergic rhinitis (ICD-10 - J30.89) 12/10/2024 Allergic rhinitis due to pollen (ICD-10 - J30.1) 12/10/2024 Other allergic rhinitis (ICD-10 - J30.89) 12/10/2024 Allergic rhinitis due to animal (cat) (dog) hair and dander (ICD-10 - J30.81) 11/12/2024 Allergic rhinitis due to animal (cat) (dog) hair and dander (ICD-10 - J30.81) 10/16/2024 Allergic rhinitis due to animal (cat) (dog) hair and dander (ICD-10 - J30.81) 09/17/2024 Allergic rhinitis due to animal (cat) (dog) hair and dander (ICD-10 - J30.81) 08/20/2024 Allergic rhinitis due to animal (cat) (dog) hair and dander (ICD-10 - J30.81) 07/24/2024 Allergic rhinitis due to animal (cat) (dog) hair and dander (ICD-10 - J30.81) 06/27/2024 Allergic rhinitis due to animal (cat) (dog) hair and dander (ICD-10 - J30.81) 05/28/2024 Allergic rhinitis due to animal (cat) (dog) hair and dander (ICD-10 - J30.81) 04/23/2024 Allergic rhinitis due to animal (cat) (dog) hair and dander (ICD-10 - J30.81) 03/26/2024 Allergic rhinitis due to animal (cat) (dog) hair and dander (ICD-10 - J30.81) 02/27/2024 Allergic rhinitis due to animal (cat) (dog) hair and dander (ICD-10 - J30.81) 02/20/2024 Allergic rhinitis due to animal (cat) (dog) hair and dander (ICD-10 - J30.81) 01/16/2024 Allergic rhinitis due to animal (cat) (dog) hair and dander (ICD-10 - J30.81) 02/13/2024 Other chronic allergic conjunctivitis (ICD-10 - H10.45) Given ocular signs and symptoms I encouraged allergy avoidance measures and meds as above. If symptoms persist, consider adding additional medications including intraocular antihistamine/m ast cell stabilizer, PRN and continue SCIT as an adjunctive measure 01/16/2024 Other chronic allergic conjunctivitis (ICD-10 - H10.45) 02/13/2024 Chronic cough (ICD-10 - R05.3) Cough is well-controlled on BID Advair HFA, suggesting cough-variant asthma. Continue current regimen as prescribed by her PCP. There were no indoor allergens uncovered on skin testing, but there were several molds which can cause year-round symptoms. Prior PFTs were normal. Overall well controlled. Consider repeat spirometry if symptoms worsen; Overall improved since starting SCIT. She is considering trial off inhaler this upcoming Winter. Would obtain updated spirometry before doing so 02/20/2024 Other chronic allergic conjunctivitis (ICD-10 - H10.45) 02/27/2024 Other chronic allergic conjunctivitis (ICD-10 - H10.45) 03/26/2024 Other chronic allergic conjunctivitis (ICD-10 - H10.45) 04/23/2024 Other chronic allergic conjunctivitis (ICD-10 - H10.45) 05/28/2024 Other chronic allergic conjunctivitis (ICD-10 - H10.45) 06/27/2024 Other chronic allergic conjunctivitis (ICD-10 - H10.45) 07/24/2024 Other chronic allergic conjunctivitis (ICD-10 - H10.45) 08/20/2024 Other chronic allergic conjunctivitis (ICD-10 - H10.45) 09/17/2024 Other chronic allergic conjunctivitis (ICD-10 - H10.45) 10/16/2024 Other chronic allergic conjunctivitis (ICD-10 - H10.45) 11/12/2024 Other chronic allergic conjunctivitis (ICD-10 - H10.45) 12/10/2024 Other chronic allergic conjunctivitis (ICD-10 - H10.45) 02/13/2024 Dyspnea, unspecified (ICD-10 - R06.00) Petty's history of feeling she cannot get a deep breath in is more suggestive of vocal cord dysfunction. Has resistive breathing exercises. If this recurs, and consider [employer] evaluation 02/13/2024 Elevated blood-pressure reading, without diagnosis of hypertension (ICD-10 - R03.0) BP elevated today without symptoms of urgency or emergency. Continue serial checks and follow-up with PCP 02/13/2024 Other Plan Of Treatment Next Appt Details Provider Name:Julio Man , 01/07/2025 07:30:00 AM, [address] [place] [address], [phone], Provider Name:Julio Man , 01/14/2025 07:30:00 AM, [address], [address] [facility], [place], [address], Provider Name:Julio Man , 01/21/2025 07:40:00 AM, [address], [address] [place] [address], [phone], Insurance Providers Payer Name Payer Address Payer Phone Subscriber Number Group Number Insured Name Patient Relationship to Insured Coverage Start Date Coverage End Date [facility] [address] [place] [address] [id number] Petty Pablo Self - patient is the insured 2 Medical (General) History Medical History History ICD Code Allergic rhinitis due to pollen J30.1 Other allergic rhinitis J30.89 Other chronic allergic conjunctivitis H1 0.45 Chronic cough R05.3 Allergic rhinitis due to animal (cat) (d og) hair and dander J30.81 Surgical History Surgery Date(Month/Year)
--- OUTSIDE RECORDS SUMMARY | 2024-12-28 08:57 | XMS_ITS | Data Portability ---
Author Organization [facility] [place] Address [address] [place] [address] [address] Care Team Providers Care Locomotive Pipe Fitter Name Role Phone HERMINIO ZAVALA Primary Care [...] Modified Time Details Appointments None recorded. Lab test, urine 2021 [place], [address], [place], [address], 2 16:29:04 hormone panel, serum or plasma 2021 [facility] (Lab), [address], [place], [address], 03:45:43 TSH, serum or plasma 2021 022 [facility] (Lab), [address] [place], [address], 2 03:45:43 Referral None recorded. Procedures None recorded. Surgeries None recorded. Imaging MAMMO, screening, bilateral 2023 024 [email or web address] [facility], [address], [place], [address], 4 15:24:39 US, pelvis 2021 [address], [address], [place], [address], 12:31:53 US, transvagina l [address], [address], [place], [address], 12:31:53 Medication Orders None recorded. Patient TargetsNo targets recorded. Patient InstructionsNo instructions recorded. Reason for Referral None Reported. Results Created Date Observation Date Name Description Value Unit Range Abnormal Flag Note LastModifiedBy Organization Detail LastModifiedTime 10/13/19 22 10/12/2021 TSH, REFLE X FREE T4 TSH 1.74 uIU/m L 0.30-5 .33 Not Available [facility] (Lab) [address] [facility], [place], [address], 10/13/2021 03:45:43 10/13/1910/12/2021 FSH, LH, ESTRA DIOL estradiol <5.0 pg/mL [...] 561-2 1280 pg/mL 3rd Trime ster8 525-> 58091 pg/mL Not Available [facility] (Lab) [address], [place], [address], 10/13/2021 03:45:43 10/13/19 22 10/12/2021 FSH, LH, [...] use: 25.8- 134.8 mIU/m L Not Available [facility] (Lab) [address], [place], [address], 10/13/2021 03:45:43 10/13/19 22 10/12/2021 FSH, LH, ESTRA DIOL LH 44.7 mIU/m L This assay was perfo rmed using [employer] ratio n reage nts and test kits. Value s obtai toribio with other assay metho ds or kits canno t be used inter contreras eably . Femal es Mid-F ollic ular: 2.4-1 2.6 mIU/m L Mid-C ycle: 14.0- 95.6 mIU/m L Mid-L uteal : 1.0-1 1.4 mIU/m L Postm enopa use: 7.7-5 8.5 mIU/m L Not Available [facility] (Lab) [address], [place], [address], 10/13/2021 03:45:43 10/13/19 22 10/12/2021 IMAGE GUIDE D PAP AND HPV REGAR DLESS image guided Pap, HPV regardless of Pap result SEE RESULT S BELOW CASE REPOR T: Cytol ogy Gynec ologi fili Repor t Case: [id number] Autho pratima sharp Provi ankit: Nichol souza , [employer] Calles cted: 10/12 1430 NANOTECHNOLOGY TECHNICIAN Order ing Locat ion: [place] Patho nica [place] luis miguel: 10/13 0120 First Scree n: [...] (NIL) . Atrop hic cell misael vazquez. Elect carrie zapien shira d by Luisa kaiser, Linda [...] as clini germán murphy nted. Not Available [facility] (Lab) [address] [facility], [place], [address], 10/17/2021 21:05:36 03/25/20 22 03/25/2022 SURGI FILI PATHO LOGY surgical pathology SEE RESULT S BELOW CASE REPOR T: Surgi fili Patho logy Repor t Case: [id number] Autho pratima lila Provi ankit: Sajan Sanders Colle cted: 03/25 1653 NANOTECHNOLOGY TECHNICIAN Order ing Locat ion: [place] Patho logy [...] ----- ----- ----- ---- CLINI FILI INFOR MARIA FERNANDAJAMES N: N93.9 MICRO SCOPI C DESCR IPTIO N: A micro scopi c exami natio n was perfo rmed. GROSS DESCR IPTIO N: A. Rishabh brewer m. The speci men is label ed with the patie nt's name, demog raphi cs and EMB. Recei luis miguel in forma giuseppe is a 1.5 x 1.4 x 0.[address] of dark red tissu e. The entir e speci men is submi tted in one casse tte. Gross ed by Edith Segovia on Not Available [facility] [address] [place], [address], 03/26/2022 14:56:20 03/25/20 22 03/25/2022 pregn guille test, urine HCG negati ve Not Available [place] [address], [place], [address], 03/25/2022 16:28:50 07/15/19 24 07/15/2023 IMAGE GUIDE D PAP AND HPV REGAR DLESS image guided Pap, HPV regardless of Pap result SEE RESULT S BELOW CASE REPOR T: Cytol ogy Gynec ologi fili Repor t Case: [id number] Autho pratima sharp Provi ankit: Sajan Sanders Colle cted: 07/15 1315 NANOTECHNOLOGY TECHNICIAN Order ing Locat ion: [place] Patho logy Recei luis miguel: 07/16 0032 First Scree n: Agata pinedo, Radha, CT Speci men: Scree veronika Pap [...] (NIL) . Atrop hic cell misael vazquez. Elect carrie zapien shira d by Radha [...] as clini germán murphy nted. Not Available [facility] (Lab) [address], [place], [address], 07/20/2023 13:47:11 03/23/20 22 03/23/2022 US, pelvi s No observ ation record ed. [id number], [place], [address], 03/23/2022 10:17:42 03/23/20 22 03/23/2022 US, trans vagin al No observ ation record ed. [id number], [place], [address], 03/23/2022 10:17:27 03/23/2003/23/2022 US, pelvi s No observ ation record ed. JOSE M [address], [facility], [place], [address], 03/25/2022 17:00:24 12/07/19 24 12/07/2023 MAMMO , scree veronika, bilat eral No observ ation record ed. JOSE M [facility] [address], [place], [address], 12/27/2023 04:07:33 Result Notes None recorded. Procedures Surgical History Date Name Laterality Status Provider Name and Address Organization Details Recorded Time 03/25/20 Endometrial Biopsy completed Tabatha Morse [facility]- [address], [place], [address], [place] - [facility] 03/25/2022 13:03:43 10/20/20 22 Endometrial Biopsy completed Sabiha Champion [facility] 07/15/2023 12:44:46 10/13/19 22 Date of Last Pap Smear completed Brooklyn Lomas [facility] 03/25/2022 10:10:47 03/07/20 17 uterine myomectomy completed Tabatha Morse, [facility]- [address], [place], [address], [facility] 03/25/2022 10:41:59 Imaging Results None recorded. Procedure Notes None recorded. Medical Equipment None Reported. Allergies Allergen ID Allergen Name Allergen Category Reaction Reaction Severity Criticality Documentation Date Start Date Code Code System Note Provider Name and Address Organization Details Recorded Time erythromy ori medicatio n Not available Not available Not available 10/12/2021 4053 RxNorm Brooklyn Lomas [facility], [facility] 11:50:22 Medications Name Sig Start Date [...] Body mass index (BMI) Body weight Systolic And Diastolic Provider Name and Address Organization Details Last Updated DateTime 07/15/2023 154.94 cm 24.2 kg/m2 28070.82 g 150/88 mm[Hg] Sabiha Champion [facility] 07/15/2023 12:51:28 Date Recorded Systolic And Diastolic Provider Name and Address Organization Details Last Updated DateTime 10/12/2021 122/80 mm[Hg] Tabatha Morse, [facility]- [address], [place], [address], [facility] 10/12/2021 12:20:11 Date Recorded Body height Body mass index (BMI) Body weight Provider Name and Address Organization Details Last Updated DateTime 10/12/2021 154.94 cm 23.4 kg/m2 57894.45 g Brooklyn Abebe [facility] 10/12/2021 11:50:00 Date Recorded Systolic And Diastolic Provider Name and Address Organization Details Last Updated DateTime 03/25/2022 126/80 mm[Hg] Tabatha Morse, [facility]- [address], [place], [address], [facility] 03/25/2022 10:42:12 Date Recorded Body height Provider Name an d Address Organization Details Last Updated DateTime 03/25/2022 154.94 cm Brooklyn Lomas [facility] 03/25/2022 10:09:12 Social History Question Answer Notes LastModified by Organizat ion Details LastModified Time Tobacco Smoking Status Never Smoker Brooklyn Abebe null, [facility] 03/25/2022 10:10:03 Do You Have An Advance Directive? No Information n ot available 03/25/2022 Are You Blind Or Do You Have [...] Or The Highest Degree You Have Received? [id number] Information not available 03/25/2022 Are There Any [...] Information not available 03/25/2022 Do You Use Sunscreen Routinely? Yes Information not available 10/12/2021 Have You Used IV Drugs? No Information not available 03/25/2022 Do You Have Difficulty Walking Or Climbing Stairs? No Information not available 03/25/2022 Sex: Unknown Functional Status Question Answer Note LastModified by Organizat ion Details LastModified Time Do you use any illicit or recreational drugs? No Information not available 10/12/2021 What is your level of alcohol consumption? None Information not available 10/12/2021 Are you able to walk? YESWOREST Information not available 10/12/2021 Are you able to care for yourself independently? Yes Information not available 03/25/2022 Do you have difficulty dressing, bathing, grooming, or toileting? No Information not available 03/25/2022 What is your exercise level? Moderate Information not available 10/12/2021 Mental Status Question Answer Note LastModified by Organization D etails LastModified Time Do you feel stressed (tense, restless, nervous, or anxious, or unable to sleep at night)? [id number] Information not available 10/12/2021 Family History Relationship Description Onset Age of [...] SNOMED-CT Code Diagnosis ICD10 Code Diagnosis Note [id number] Tabatha Morse , [facility] [place] [address] [address] 10/12/2021 11:28:14 10/12/2021 12:45:58 Gynecologic examination [id number] Z01.419 Take Calcium with Vitamin D 12-1500mg daily. Do monthly self breast exams. It is advised to get annual flu shot in the fall and she could obtain at [facility] or [facility] clinic. If you haven't received the Tdap [...] PCP routine adult labsMammo ordered Irregular periods [id number] N92.6 Likely rigoberto to menopause changes in her menses but we agreed to update ovarian function today.Will have her PCP fax us her recent adult labs done this year as well. Keep menstrual diary [id number] Ted Wild MD [place] [address],[place] [address] 03/23/2022 09:21:00 03/23/2022 10:20:09 Irregular periods 94608159 N92.6 D25.9 [id number] Tabatha Morse [facility] [place] [address],[place] [address] 03/25/2022 09:57:02 03/25/2022 15:20:01 Uterine leiomyoma 54726101 D25.9 D25.0 N93.9 US results reviewedEM Bx [...] care not including time spent on procedure. [id number] Tabatha Morse , [facility] [address] [address] 07/15/2023 12:32:39 07/19/2023 08:59:02 Gynecologic examination 29988889 Z01.419 Z11.51 Take Calcium with Vitamin D 12-1500mg daily. Do monthly self breast exams. It is advised to get annual flu shot in the fall and she could obtain at [facility] or [facility] take care clinic. If you haven't received the Tdap [...] routine adult labsMammo ordered Screening mammography 24 351372 Z12.31 Health Concerns Section Related Observation LastModified by Organization Detai ls LastModified Time None Recorded Concern Status LastModified by Organization Details LastModified Time None Recorded Advance Directives Directive N: Payers Insurance Date Sequence Insurance Name Policy Number Policy Christiansen Covered Member ID Christiansen Member ID Guarantor Name 07/19/2023 1 [employer] [id number] Petty Pablo [id number] Petty Pablo Notes Date Note Type Note Provider Name and Address Organization Details Recorded Time 2 text/html Annual GYNReported by PatientGenitourinary symptomsFor menstrual cycle, patient reportsperimenopausal (irregular cycle intervals likely transition into menopause but will require a little further assessment to ensure no other issues). For urinary symptoms, patient reportsno hematuriaandno incontinence. For vulva, patient reportsno genital lesion. For vagina, patient reportsnormal vaginal discharge.Breast symptomsFor breast, patient reportsno breast pain,no breast lump, andno nipple discharge.Endocrine symptomsFor sexual complaints, patient reportsno sexual complaints,no pain during intercourse, andnormal libido. For menopausal symptoms, patient reportsno menopausal symptomsandnormal vaginal lubrication.Psychological symptomsFor psychological symptoms, patient reportsno depression,no anxiety, andno pmdd.Preventative measuresFor preventive measures, patient reportsencourage self breast examination,encourage regular exercise,encourage no tobacco use,encourage regular mammograms starting age 40,needs to schedule mammogram, andup to date on colonoscopy screening. Tabatha Morse, [facility]- [address], [place], [address], [place] [facility] 10/12/2021 12:25:13 2 text/html ROS as noted in the HPI Here today for US review & EMBx. Brooklyn fuller, [facility] 03/25/2022 16:29:18 4 text/html Annual Seed Core Operator Post-MenopausalReported by PatientGenitourinary symptomsFor menopausal symptoms, patient reportsno menopausal symptomsandnormal vaginal lubrication. For vaginal bleeding, patient reportshistory of menopause having occurredandno history of post menopausal bleeding. For urinary symptoms, patient reportsno hematuria,no incontinence,no nocturia, andno urinary frequency. For vulva, patient reportsno genital lesionandno vulvar atrophy. For vagina, patient reportsnormal vaginal dischargeandno vaginal atrophy.Breast symptomsFor breast, patient reportsno breast lump,no nipple discharge, andno breast pain.Psychological symptomsFor sexual complaints, patient reportsno sexual complaints. For psychological symptoms, patient reportsno depressionandno anxiety.Preventative measuresFor preventive measures, patient reportsencourage regular mammograms starting age 40,encourage self breast examination,encourage regular exercise,encourage no tobacco use,needs to schedule mammogram, andhistory of recent colonoscopy. Tabatha Morse, [facility] [address], [place], [address], [facility] 07/18/2023 23:49:46 OBGyn Episode Ob Episode Information Episode Created Date Number of Fetuses Patient Bloodtype Patient rh Status Prepregnancy Weight lbs Domestic Partner Domestic Partner Phone Father Name Nurse Chemical Dependency Status 10/13/19 22 1 CLOSED Fetus Data First Name Last Name Admitted to NICU Weight (g) Sex Living Outcome Pediatric Complications Fetus ID Race Codes Race Delivery Type M Full Term [id number] Vaginal Delivery Roldan Calculation Initial Roldan Date [...]
--- OUTSIDE RECORDS SUMMARY | 2024-12-28 08:57 | XMS_ITS | Encounter Summary ---
Author Organization [facility] Address [address] [place] [address] Care Team Providers Care Excavation Laborer Name Role Phone Armond Koehler MD Primary Care Provider [phone] Encounter Details Date Type Department Care Team (Latest Contact Info) Description 05/01/2008 Outpatient Historical HIS [facility] Alverto Ovalle MD NO ADDRESS ON FILE Other Screening Mammogram Social History Tobacco Use Types Packs/Day Years Used Date Smoking Tobacco: Never Assessed Comments Unknown Sex and Gender Information Value Date Recorded Sex Assigned at Not on file Legal Sex Female 5:26 AM ORTHOTICS TECHNICIAN Gender Identity Not on file Sexual Orientation Not on file documented as of this encounter Plan of Treatment Not on file documented as of this encounter Procedures Procedure Name Priority Date/Time Associated Diagnosis Comments MAMMO SCREEN BILAT W OR WO CAD Timed Study 05/01/2008 10:16 AM ORTHOTICS TECHNICIAN documented in this encounter Results * MAMMO DIGITAL SCREEN BILAT (05/01/2008 10:16 AM ORTHOTICS TECHNICIAN) Anatomical Region Laterality Modality Breast Bilateral Other 05/01/2008 10:1 6 AM ORTHOTICS TECHNICIAN Narrative 05/01/2008 11:40 PM ORTHOTICS TECHNICIAN [id number] [place], [place] [address] Admit Date: 05/01/2008 PETTY ALVAREZ Sex: F Admit Prov: ALVERTO CASON Date: 1970 Primary Care Prov: ALVERTO CASON CMRN: [id number] Room: OUMAR N: [id number] IMAGING SERVICES Ordering Prov: ALVERTO CASON Accession Number: [id number] Interpretation BILATERAL SCREENING DIGITAL MAMMOGRAMS WITH COMPUTER ASSISTED DIAGNOSIS 05/01/2008 History: Annual screening study. This is the patient's baseline mammogram. FINDINGS: The parenchyma is very dense bilaterally. This lowers the sensitivity of mammography in detecting disease. There is no mass, malignant calcification, lymphadenopathy, architectural distortion or other sign of malignancy. The images were reviewed using the CAD system. SUMMARY: Dense mammary parenchyma. No mammographic evidence of malignancy. Overall assessment: BIRADS category 1 - Negative Assessment BIRADS: 1-Negative Recommendation: Normal interval follow-up Dictated by: EDWINA HEADLEY Electronically signed by: EDWINA HEADLEY 05/01/2008 23:39 Transcribed: 05/01/2008 16:05 AMK Procedure Note Edwina Headley MD - 05/01/[address] [address] Admit Date: 05/01/2008 PETTY ALVAREZ Sex: F Admit Prov: ALVERTO CASON Date:1970 Primary Care Prov: ALVERTO CASON CMRN: [id number] Room: OUMAR N: [id number] IMAGING SERVICES Ordering Prov: ALVERTO CASON Interpretation BILATERAL SCREENING DIGITAL MAMMOGRAMS WITH COMPUTER ASSISTEDDIAGNOSIS 05/01/2008 History: Annual screening study. This is the patient's baseline mammogram. FINDINGS: The parenchyma is very dense bilaterally. This lowersthe sensitivity of mammography in detecting disease. There is no mass, malignant calcification, lymphadenopathy, architectural distortion orother sign of malignancy. The images were reviewed using the CADsystem. SUMMARY: Dense mammary parenchyma. No mammographic evidence of malignancy. Overall assessment: BIRADS category 1 - Negative Assessment BIRADS: 1-Negative Recommendation: Normal interval follow-up Dictated by: EDWINA HEADLEY Electronically signed by: EDWINA HEADLEY 05/01/2008 23:39 Transcribed: 05/01/2008 16:05 AMK us Alverto Cason MD MAMMO ORDERABLES Final Result documented in this encounter Visit Diagnoses Diagnosis Other screening mammogram documented in this encounter Care Teams Excavation Laborer Relationship Specialty Start Date End Date Armond Koehler MD PCP - General Family Practice 08/18/11 documented as of this encounter
== END 2024-12-28 08:53 | disposition home or self-care (01) ==
LOC: ANHAUDIO 08:52
PROVIDERS: PCP Family Medicine
DX: H90.3 Sensorineural hearing loss, bilateral (principal)
CPT/HCPCS: 92557; 92567